=== PATIENT | female | born 1960 | race Caucasian/White ===

== ENCOUNTER 2022-11-02 14:42 | Outpatient (AMB) | payer OTHER, SELFPAY ==
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
[2022-11-02 14:49] VITALS: BP 120/62; PULSE 78; RESP 14; TEMP 37.2; O2SAT 99; BMI 31.9
== END 2022-11-02 15:58 | disposition home or self-care (01) ==
PROVIDERS: PCP Family Medicine; Visit Provider Family Medicine
DX: I10 Essential (primary) hypertension (principal); E11.65 Type 2 diabetes mellitus with hyperglycemia; J45.909 Unspecified asthma, uncomplicated; I25.10 Atherosclerotic heart disease of native coronary artery without angina pectoris; M25.511 Pain in right shoulder; E78.5 Hyperlipidemia, unspecified; R79.89 Other specified abnormal findings of blood chemistry
CPT/HCPCS: 99204

== ENCOUNTER 2023-02-15 08:48 | Outpatient (AMB) | payer OTHER, SELFPAY ==
[2023-02-15 08:52] VITALS: BP 124/64; PULSE 73; RESP 12; O2SAT 98; BMI 30.9
--- NOTE | 2023-02-15 08:52 | A.OFFPC_ITS ---
Vital Signs 02/15/23 08:52 Height 4 ft 10 in Weight 148 lb BMI 30.9 BP 124/64 Blood Pressure Location Lt brachial Position Sitting Respiration 12 Pulse 73 Pulse Source Pulse Oximeter Pulse Oximetry (%) 98 Oxygen Delivery Method Room Air Intake Visit Reasons: CPE with f/u labs and health maintenance Intake Note: Patient is here for her physical and to review her labs. Patient reports she had a pressure test with Dr. Randolph and is not aware of these results yet. Patient reports she had labs completed at [facility] labs. These labs are printed for providers review. Patient reports she needs help with obtaining diabetic supplies. Teller Required: No Accompanied by: Self / Same As Patient Allergies epinephrine Allergy (Severe, Verified 02/15/23 08:58) Anxiety general anestesia Allergy (Severe, Uncoded 02/15/23 08:58) hypothermia statin Allergy (Severe, Uncoded 02/15/23 08:58) Joint Pain Medication List - Last Reconciled 02/15/23 by Perry Huff MD albuterol sulfate 90 mcg/actuation 2 puffs inhalation Q6H PRN aspirin 81 mg PO DAILY calcium carbonate-vitamin D3 500 mg-10 mcg (400 unit) (Oyster Shell Calcium- Vitamin D3) 1 tab PO DAILY cholecalciferol (vitamin D3) 1,250 mcg PO .every other week clotrimazole-betamethasone 1-0.05 % 1 appl topical BID empagliflozin (Jardiance) 25 mg PO DAILY 90 days estradiol 1 mg PO DAILY ezetimibe 10 mg PO DAILY glyburide 5 mg PO BID 90 days levothyroxine 100 mcg PO DAILY 90 days lisinopril 5 mg PO DAILY metoprolol succinate ER 25 mg PO DAILY vitamin K2 100 mcg PO DAILY Tobacco use date assessed: 11/02/22 Dental Screening Dental Screen Date: 02/15/23 Did you have a dental visit in the last 12 months?: Yes Did you have a dental problem in the last 6 months where you did not have access to dental care?: No Was dental information given to patient?: Patient has dentist HPI CPE with f/u labs and health maintenance HPI Details 62 y/o female presents for a CPE with f/ u labs and health maintenance. Hx of CAD. Labs had been completed at [facility]. LDL 90. She is on ezetimibe 10mg daily. Pt reports she had been unable to tolerate artovastatin. She has not trialed pravastatin yet. Recent A1c 8.8%. She is on Jardiance 25mg daily, glyburide 5mg b.i.d. She had been on insulin in the past. She has not trialed Trulicity yet. She sees an eye doctor every year for her diabetes. [facility] Medical History History of pilonidal cyst Surgical History History of heart artery stent H/O tubal ligation H/O: hysterectomy Family History (Updated 02/15/23 @ 09:06 by Sumaya Farfan CMA) Mother Alcohol abuse Father Alcohol abuse Brother Alcohol abuse Sister No problems noted. Social History (Updated 02/15/23 @ 09:08 by Sumaya Farfan CMA) Household Members: None Both parents involved: No Caregiver staying overnight: No Housing: House Are you a primary career information specialist to a significant other at home: No Do you presently have visiting nurse or other home services: No 75 years or older and lives alone: No Alcohol intake: never Patient Tobacco Use Status: Former Tobacco user Cigarette Packs Per Day: 1 Years Smoked: 30 e-Cigarette/Vaping Use: Never Used service: Yes ([employer]) Current occupational status: employed Current occupation: [employer] Current occupational exposures/hazards: Yes Sexual orientation: Unable to collect Gender identity: Unable to collect Cognitive needs: No Hearing needs: Yes Vision needs: Yes Questionnaire PHQ-9 Over the last 2 weeks, how often have you been bothered by any of the following problems? 1. Little interest or pleasure in doing things: not at all 2. Feeling down, depressed, or hopeless: not at all 3. Trouble falling or staying asleep, or sleeping too much: not at all 4. Feeling tired or having little energy: not at all 5. Poor appetite or overeating: not at all 6. Feeling bad about yourself - or that you are a failure or have let yourself or your family down: not at all 7. Trouble concentrating on things, such as reading the newspaper or watching television: not at all 8. Moving or speaking so slowly that other people could have noticed. Or the opposite - being so fidgety or restless that you have been moving around a lot more than usual: not at all 9. Thoughts that you would be better off or of hurting yourself in some way: not at all Total score: 0 Depression Screening Interpretation: Negative Depression Screening Done: Yes 12786 - PHQ-9 Billing: Yes Source: Developed by Drs. Roque Kaur, Diana Ordaz, Kevin Velásquez and colleagues, with an educational rosendo from [employer]. Thrive Questionnaire Date Thrive assessed: 02/15/23 I am a: Patient What is your living situation today?: I have a steady place to live Within the past 12 months, did the food you bought not last and you didn't have the money to get more?: Never true Within the past 12 months, did you worry whether your food would run out before you got money to buy more?: Never true Do you have trouble paying for medicines?: No Do you have trouble getting transportation to medical appointments?: No Do you have trouble paying your heating and electricity bill?: No Do you have trouble with day-to-day activities such as bathing, preparing meals, shopping, managing finances, etc.?: No Are you currently unemployed and looking for a job?: No Are you interested in more education?: No Please select the resources that you would like help with: None Currently or been in a relationship where the following occur: no concerns reported AUDIT C Alcohol Use Questionnaire (AUDIT-C) 1. How often do you have a drink containing alcohol?: Never 3. How often do you have six or more drinks on one occasion?: Never Total Score: 0 HEIDY-7 AMB Questionnaire HEIDY-7 Date HEIDY - 7 assessed: 02/15/23 Feeling nervous, anxious, or on edge: 0 = Not at all Not being able to stop or control worryin = Not at all Worrying too much about different things: 0 = Not at all Trouble relaxin = Not at all Being so restless that it is hard to sit still: 0 = Not at all Becoming easily annoyed or irritable: 0 = Not at all Feeling afraid as if something awful might happen: 0 = Not at all Total HEIDY-7 score (0-4 normal; 5-9 mild; 10-14 moderate; 15-21 severe): 0 Source: Developed by Drs. Roque Kaur, Diana Ordza, Kevin Velásquez and colleagues, with an educational rosendo from [employer]. HEIDY-7 Assessment Billing HEIDY-7 Assessment Tool: HEIDY-7 Assessment 12288 Review of Systems Const Denies chills, Denies fatigue, Denies fever(s), Denies headache(s) and Denies weakness Eyes Denies change in vision ENT Denies dizziness, Denies headache(s), Denies hearing loss, Denies nasal congestion, Denies sinus pain, Denies sinus pressure and Denies sore throat Card Denies chest pain, Denies lightheadedness, Denies dyspnea and Denies other (palpitations) Resp Denies cough, Denies dyspnea and Denies wheezing GI Denies abdominal pain, Denies melena, Denies hematochezia, Denies change in bowel habits, Denies dyspepsia and Denies nausea Denies hematuria and Denies dysuria Musc Denies abnormal gait, Denies myalgias, Denies arthralgias, Denies numbness and Denies tingling Skin/Breast Denies rash, Denies unusual bruising and Denies wounds Neuro Denies abnormal gait, Denies dizziness, Denies headache(s), Denies memory loss, Denies numbness, Denies Sensory deficit (Neuro), Denies tingling and Denies weakness Psych Denies anxiety, Denies depression and Denies memory loss Endo Denies cold intolerance, Denies fatigue, Denies heat intolerance, Denies polydipsia and Denies polyuria Parish/Lymph Denies easy bleeding and Denies easy bruising Aller/Immun Denies wheezing Physical exam (Primary Care) Vital Signs: Last Vital Signs Pulse 73 02/15/23 08:52 Resp 12 02/15/23 08:52 BP 124/64 02/15/23 08:52 Pulse Ox 98 02/15/23 08:52 Oxygen Delivery Method Room Air 02/15/23 08:52 BMI result Body Mass Index 30.9 Tobacco/Smoking Status: Tobacco use Status Tobacco use date assessed 11/02/22 02/15/23 08:56 Patient Tobacco Use Status Former Tobacco user 02/15/23 09:08 e-Cigarette/Vaping Use Never Used 02/15/23 09:08 PHQ-9: PHQ-9 Score PHQ-9: Total score 0 02/15/23 09:41 Depression Screening Interpretation: Negative Thrive Assessment: Date of Thrive Assessment Date Thrive assessed 02/15/23 02/15/23 09:13 Currently or been in a relationship where the following occur: no concerns reported Const General: no acute distress, well developed, alert and awake Nutritional Appearance: well nourished Orientation/consciousness: patient oriented x3 HENMT Head: Yes normocephalic and Yes atraumatic Ears: hearing grossly normal bilaterally and TM's normal bilaterally General nose exam: Normal external nose present and Normal nares present Mouth: Normal oral and palatal mucosa present and moist mucous membranes Teeth and gingiva: dentition normal Throat: Yes posterior oropharynx normal Eyes General: appearance normal, both eyes and all related structures Pupils: Equal, round and reactive pupils present and Pupil accommodation reflex normal EOM: EOMs intact bilaterally Neck Neck: Yes normal visual inspection, Yes no lymphadenopathy and Yes trachea midline Thyroid: Thyroid normal Carotids: no bruits Lymphatic: no lymphadenopathy noted Chest Chest palpation & inspection: normal inspection of the chest Resp Effort & Inspection: normal respiratory effort Auscultation: clear to auscultation bilaterally Cardio Rate: regular rate Rhythm: regular rhythm Heart sounds: S1 normal heart sound present, S2 normal heart sound present, no gallops, no murmurs and no rubs Bruits: no abdominal aortic bruits and no carotid bruits GI Palpation (GI): No Abdominal aortic bruit present, Soft to palpation, nontender, No hepatosplenomegaly present and No Rebound tenderness present Auscultation: normal bowel sounds General: Yes no CVA tenderness Back/Spine/Pelvis Back: no CVA tenderness Cervical Spine: cervical ROM normal and No Cervical spine tenderness Thoracic/Lumbar Spine: thoraco-lumbar ROM normal, No pain with thoraco-lumbar ROM, No thoracic spinal tenderness and No lumbar spinal tenderness Skin Lesions: no lesions Rashes: no rashes Trauma: no lacerations or abrasions Wounds: no wounds Nails: normal Neuro General: patient oriented x3 Cranial nerves: Yes Equal, round and reactive pupils present Cognition (Neuro): normal cognition Gait exam (Neuro): Normal gait present Motor exam (neuro): 5/5 motor strength present throughout Sensory Exam: No Sensory deficit (Neuro) Deep tendon reflexes (DTR's): Right patellar reflex intensity grade: 2+ and Left patellar reflex intensity grade: 2+ Extrem General: Yes normal to inspection and No edema Psych Appearance: grossly normal Affect: normal affect Attitude: cooperative Thought process: Normal thought process present Assessment and Plan Assessment & Plan (1) Adult general medical exam: Code(s): Z00.00 - Encounter for general adult medical examination without abnormal findings Plan: 62-year-old?female?presents?for?complete?physical?exam (2) Diabetes: Code(s): E11.9 - Type 2 diabetes mellitus without complications Plan: A1c?8.8%.??Uncontrolled?diabetes.??Goal?is?less?than?7.0% Continue?Jardiance.??Will?start?Trulicity. Patient?is?concerned?about?low?blood?sugars;?She?can?hold?her ?glyburide?when?1st?starting?Trulicity?and?added?back?if?she?is?not?getting?low? blood?sugars. (3) Hyperlipidemia: Code(s): E78.5 - Hyperlipidemia, unspecified Plan: LDL?cholesterol?90.??Goal?is?less?than?70?for?patient?with?coronary?artery?disea se She?is?on?Zetia. Has?not?tolerated?other?statins?but?has?not?tried?pravastatin Will?give?her?a?low?dose?of?pravastatin?to?try?to?get?her?at?or?near?goal We?discussed?stopping?the?medication?if?she?notes?worsening?achiness. (4) Coronary artery disease: Code(s): I25.10 - Atherosclerotic heart disease of [place] coronary artery without angina pectoris Plan: Currently?stable Follow-up?with?Cardiology?at?[facility] Medications: New pravastatin 5 mg (1/2 x 10 mg) PO BEDTIME 30 days 15 tabs 2RF dulaglutide (Trulicity) 0.75 mg (0.5 mL) subcut QWEEK 28 days 2 mL 3RF Coding Level of Care Code Est Pt Level 3 (52563) Est Pt Prev Care 40-64y(22348) Diagnoses Adult general medical exam Z00.00 Diabetes E11.9 Hyperlipidemia E78.5 Coronary artery disease I25.10 Additional Codes HEIDY-7 Assessment Billing - HEIDY-7 Assessment Tool: HEIDY-7 Assessment 53656 ([id number])
== END 2023-02-15 10:15 | disposition home or self-care (01) ==
PROVIDERS: PCP Family Medicine; Visit Provider Family Medicine
DX: Z00.00 Encounter for general adult medical examination without abnormal findings (principal); E11.9 Type 2 diabetes mellitus without complications; E78.5 Hyperlipidemia, unspecified; I25.10 Atherosclerotic heart disease of native coronary artery without angina pectoris
CPT/HCPCS: 99213; 99396

== ENCOUNTER 2023-02-28 08:45 | Outpatient (AMB) | payer OTHER, SELFPAY ==
--- NOTE | 2023-02-28 09:15 | MHC.PC.OV ---
Vital Signs 02/28/23 09:17 Height 4 ft 10 in Weight 154 lb 2 oz BMI 32.2 BP 134/68 Blood Pressure Location Lt brachial Position Sitting Respiration 12 Pulse 70 Pulse Source Pulse Oximeter Pulse Oximetry (%) 99 Oxygen Delivery Method Room Air Intake Visit Reasons: arana, allergic reaction Intake Note: Patient is here for a hospital discharge follow up of an unknown allergic reaction. Patient reports she has been told to stop taking the Lisinopril and the Trulicity as they have intertwining side effects from what the patient is experiencing including facial swelling. Patient reports she has pink eye symptoms as well and wonders if this is coincidental. 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 Accompanied by: Self / Same As Patient Allergies epinephrine Allergy (Severe, Verified 02/28/23 09:36) Anxiety general anestesia Allergy (Severe, Uncoded 02/28/23 09:22) hypothermia statin Allergy (Severe, Uncoded 02/28/23 09:22) Joint Pain lisinopril Allergy (Mild, Uncoded 02/28/23 09:36) Angioedema Medication List - Last Reconciled 02/28/23 by Latoya Harris, [facility]- albuterol sulfate 90 mcg/actuation 2 puffs inhalation Q6H PRN aspirin 81 mg PO DAILY calcium carbonate-vitamin D3 500 mg-10 mcg (400 unit) (Oyster Shell Calcium-Vitamin D3) 1 tab PO DAILY cholecalciferol (vitamin D3) 1,250 mcg PO .every other week clotrimazole-betamethasone 1-0.05 % 1 appl topical BID dulaglutide (Trulicity) 0.75 mg (0.5 mL) subcut QWEEK 28 days empagliflozin (Jardiance) 25 mg PO DAILY 90 days estradiol 1 mg PO DAILY ezetimibe 10 mg PO DAILY glyburide 5 mg PO BID 90 days levothyroxine 100 mcg PO DAILY 90 days lisinopril 5 mg PO DAILY metoprolol succinate ER 25 mg PO DAILY pravastatin 5 mg (1/2 x 10 mg) PO BEDTIME 30 days vitamin K2 100 mcg PO DAILY Tobacco use date assessed: 02/28/23 HPI HPI Comments History of Present Illness Details Here today for HDF 02/26/23 Went to ED for angioedema after new start of Trulicity (02/25/23 at 7pm). her sx started that evening. She was also on ACEI D/C instructions were to d/c both meds and f/u Here today feeling did not trulicity or lisinopril cont w/ eye lid swelling. started w chills but w/o fever Using benadryl w/o relief Denies trouble breathing, swallowing, swelling of oral mucosa. blood sugar was 93 this AM [facility] Medical History History of pilonidal cyst Surgical History History of heart artery stent H/O tubal ligation H/O: hysterectomy Family History (Updated 02/15/23 @ 09:06 by Sumaya Farfan CMA) Mother Alcohol abuse Father Alcohol abuse Brother Alcohol abuse Sister No problems noted. Social History (Updated 02/15/23 @ 09:08 by Sumaya Farfan CMA) Household Members: None Both parents involved: No Caregiver staying overnight: No Housing: House Are you a primary healthcare financial analyst to a significant other at home: No Do you presently have visiting nurse or other home services: No 75 years or older and lives alone: No Alcohol intake: never Patient Tobacco Use Status: Former Tobacco user Cigarette Packs Per Day: 1 Years Smoked: 30 e-Cigarette/Vaping Use: Never Used service: Yes ([employer]) Current occupational status: employed Current occupation: [employer] Current occupational exposures/hazards: Yes Sexual orientation: Unable to collect Gender identity: Unable to collect Cognitive needs: No Hearing needs: Yes Vision needs: Yes Questionnaire Thrive Questionnaire Date Thrive assessed: 02/15/23 HEIDY-7 AMB Questionnaire HEIDY-7 Date HEIDY - 7 assessed: 02/15/23 Source: Developed by Drs. Roque Kaur, Diana Ordaz, Kevin Velásquez and colleagues, with an educational rosendo from [employer]. Review of Systems Const All systems reviewed & are unremarkable except as noted in HPI and below Physical exam (Primary Care) Vital Signs: Last Vital Signs Pulse 70 02/28/23 09:17 Resp 12 02/28/23 09:17 BP 134/68 02/28/23 09:17 Pulse Ox 99 02/28/23 09:17 Oxygen Delivery Method Room Air 02/28/23 09:17 BMI result Body Mass Index 32.2 Tobacco/Smoking Status: Tobacco use Status Tobacco use date assessed 02/28/23 02/28/23 09:22 Patient Tobacco Use Status Former Tobacco user 02/28/23 09:15 e-Cigarette/Vaping Use Never Used 02/28/23 09:15 Thrive Assessment: Date of Thrive Assessment Date Thrive assessed 02/15/23 02/28/23 09:15 Const Other: awake alert NAD edema of upper lids bilat, PERRLA, EOMI pharynx wnl, managing secretions LS CTAB RRR Assessment and Plan Assessment & Plan (1) Hospital discharge follow-up: Code(s): Z09 - Encounter for follow-up examination after completed treatment for conditions other than malignant neoplasm (2) Angioedema: Code(s): T78.3XXA - Angioneurotic edema, initial encounter Qualifiers: Encounter type: subsequent encounter Qualified Code(s): T78.3XXD - Angioneurotic edema, subsequent encounter Plan Total time spent caring for the patient today was 60 minutes. This includes time spent before the visit reviewing the chart, time spent during the visit, and time spent after the visit on documentation Medications: New famotidine (Pepcid) 40 mg PO BEDTIME 14 tabs 0RF cetirizine (Zyrtec) 10 mg PO DAILY 30 days 30 tabs 0RF Patient Instructions: STOP lisinopril. Add to allergy at the pharmacy. Call Dr Randolph for alternative to Lisinopril Do not inject trulicity until after your visit here on Tuesday. Do not restart glyburide or jardiance at this time - we will discuss further at next visit if you think you need benadryl, take only at bedtime . Monitor BP and blood glucose at home, bring log with you. Coding Level of Care Code Est Pt Level 5 (89828) Diagnoses Hospital discharge follow-up Z09 Angioedema, subsequent encounter T78.3XXD Encounter type: subsequent encounter
[2023-02-28 09:17] VITALS: BP 134/68; PULSE 70; RESP 12; O2SAT 99; BMI 32.2
== END 2023-02-28 09:54 | disposition home or self-care (01) ==
PROVIDERS: PCP Family Medicine; Visit Provider Nurse Practitioner Family
DX: T78.3XXA Angioneurotic edema, initial encounter (principal); Z09 Encounter for follow-up examination after completed treatment for conditions other than malignant neoplasm
CPT/HCPCS: 99215

== ENCOUNTER 2023-03-04 09:00 | Outpatient (AMB) | payer OTHER, SELFPAY ==
[2023-03-04 09:07] VITALS: BP 122/72; PULSE 75; O2SAT 100; BMI 31.6
--- NOTE | 2023-03-04 09:07 | MHC.PC.OV ---
Vital Signs 03/04/23 09:07 Height 4 ft 10 in Weight 151 lb 2 oz BMI 31.6 BP 122/72 Blood Pressure Location Lt brachial Position Sitting Pulse 75 Pulse Source Pulse Oximeter Pulse Oximetry (%) 100 Oxygen Delivery Method Room Air Intake Visit Reasons: allergic reaction follow up Intake Note: Patient is here for follow up on allergic reaction, patient is not getting any relief, sinus pressure, and histimines, and numbness feeling on left side frome eye to nose, and drooling on the right side. Allergies epinephrine Allergy (Severe, Verified 03/04/23 10:02) Anxiety general anestesia Allergy (Severe, Uncoded 03/04/23 09:10) hypothermia statin Allergy (Severe, Uncoded 03/04/23 09:10) Joint Pain lisinopril Allergy (Mild, Uncoded 03/04/23 09:10) Angioedema Medication List - Last Reconciled 03/04/23 by Latoya Harris, CAVING GUIDE- albuterol sulfate 90 mcg/actuation 2 puffs inhalation Q6H PRN aspirin 81 mg PO DAILY calcium carbonate-vitamin D3 500 mg-10 mcg (400 unit) (Oyster Shell Calcium-Vitamin D3) 1 tab PO DAILY cetirizine (Zyrtec) 10 mg PO DAILY 30 days cholecalciferol (vitamin D3) 1,250 mcg PO .every other week clotrimazole-betamethasone 1-0.05 % 1 appl topical BID dulaglutide (Trulicity) 0.75 mg (0.5 mL) subcut QWEEK 28 days empagliflozin (Jardiance) 25 mg PO DAILY 90 days estradiol 1 mg PO DAILY ezetimibe 10 mg PO DAILY famotidine (Pepcid) 40 mg PO BEDTIME levothyroxine 100 mcg PO DAILY 90 days metoprolol succinate ER 25 mg PO DAILY pravastatin 5 mg (1/2 x 10 mg) PO BEDTIME 30 days vitamin K2 100 mcg PO DAILY Tobacco use date assessed: 03/04/23 Dental Screening Dental Screen Date: 03/04/23 HPI HPI Comments History of Present Illness Details Here today to f/u angioedema thought to be caused by ACEI Since last visit she has remained her lisinopril. She did call Cardiology for alternative however she has not heard back. Despite being off the Wes her blood pressure is within normal limits. She has not received another dose of Trulicity since our last visit. She is due for her 2nd dose today. Her blood sugar log was reviewed with her today, readings are less than 130 mg/dL. Her blood sugar this morning was 126 mg/dL. She remains off the glyburide and is taking Jardiance 10 mg in the morning. In regards to the angioedema symptoms she is not sure if this is getting better or if she has something else going on. She reports a history of sinus infections usually happen a few times a year. She describes sinus infections being noticed on imaging but on physical exam no impressive findings. Today she reports that she is having sinus congestion, pressure, burning in nares. This started over the last few days. She did continue to have some tearing in her eyes and she did go to the eye doctor on Tuesday she reports a full exam was done and told everything was within normal limits. Her breathing remains normal. The edema over her eyes is better. However remains. Continues to take Benadryl at night. Did not try the Zyrtec or the Pepcid as she did not really understand why she should be taking that. She wants to continue the Trulicity and has no interest in stopping this. [facility] Medical History History of pilonidal cyst Surgical History History of heart artery stent H/O tubal ligation H/O: hysterectomy Family History Mother Alcohol abuse Father Alcohol abuse Brother Alcohol abuse Sister No problems noted. Social History Household Members: None Both parents involved: No Caregiver staying overnight: No Housing: House Are you a primary caregiver services home to a significant other at home: No Do you presently have visiting nurse or other home services: No 75 years or older and lives alone: No Alcohol intake: never Patient Tobacco Use Status: Former Tobacco user Cigarette Packs Per Day: 1 Years Smoked: 30 e-Cigarette/Vaping Use: Never Used service: Yes ([employer]) Current occupational status: employed Current occupation: [employer] Current occupational exposures/hazards: Yes Sexual orientation: Unable to collect Gender identity: Unable to collect Cognitive needs: No Hearing needs: Yes Vision needs: Yes Questionnaire Thrive Questionnaire Date Thrive assessed: 02/15/23 HEIDY-7 AMB Questionnaire HEIDY-7 Date HEIDY - 7 assessed: 02/15/23 Source: Developed by Drs. Roque Kaur, Diana Ordaz, Kevin Velásquez and colleagues, with an educational rosendo from [employer]. Review of Systems Const All systems reviewed & are unremarkable except as noted in HPI and below Physical exam (Primary Care) Vital Signs: Last Vital Signs Pulse 75 03/04/23 09:07 BP 122/72 03/04/23 09:07 Pulse Ox 100 03/04/23 09:07 Oxygen Delivery Method Room Air 03/04/23 09:07 BMI result Body Mass Index 31.6 Tobacco/Smoking Status: Tobacco use Status Tobacco use date assessed 03/04/23 03/04/23 09:11 Patient Tobacco Use Status Former Tobacco user 03/04/23 09:11 e-Cigarette/Vaping Use Never Used 03/04/23 09:11 Thrive Assessment: Date of Thrive Assessment Date Thrive assessed 02/15/23 03/04/23 09:11 Const Other: awake alert NAD TM intact and clear nares and turbinates normal, no sinus tenderness w/palpation improving edema of upper lids bilat, PERRLA, EOMI pharynx wnl, managing secretions LS CTAB RRR Assessment and Plan Assessment & Plan (1) Angioedema: Code(s): T78.3XXA - Angioneurotic edema, initial encounter Qualifiers: Encounter type: subsequent encounter Qualified Code(s): T78.3XXD - Angioneurotic edema, subsequent encounter Plan: Total time spent caring for the patient today was 60 minutes. This includes time spent before the visit reviewing the chart, time spent during the visit, and time spent after the visit on documentation Discussed with her the risks of restarting Trulicity. Despite the risks she wishes to restart this medication and will take her 1st dose today. She is aware that if angioedema or the like occurs that she should call 911. In regards to the WES inhibitor, I do believe that she should remain off of this. At this time her blood pressure is normal. She would benefit from an Arb. She has not heard back from cardiology on a recommendation yet. I did advise her that because we are treating her with antibiotic for presumed sinus infection that she should not start any other new medications as it will be hard to determine a cause of any future symptoms. She understands this. She will take antibiotics as directed. She can continue to take her Jardiance as prescribed. I will see her back in 1 week to re-evaluate the angioedema, her tolerance of the Trulicity, and re-evaluate her blood pressure and add an Arb p.r.n.. (2) Diabetes: Code(s): E11.9 - Type 2 diabetes mellitus without complications Qualifiers: Diabetes mellitus type: type 2 Diabetes mellitus residential insulin use: without termite exterminator helper use (3) Hypertension: Code(s): I10 - Essential (primary) hypertension Qualifiers: Hypertension type: primary hypertension Qualified Code(s): I10 - Essential (primary) hypertension (4) Sinusitis, acute: Code(s): J01.90 - Acute sinusitis, unspecified Qualifiers: Sinusitis location: pansinusitis Recurrence: non-recurrent Qualified Code(s): J01.40 - Acute pansinusitis, unspecified Medications: New amoxicillin-pot clavulanate 875-125 mg 1 tab PO BID 7 days 14 tabs 0RF Patient Instructions: Restart Trulicity today If Cards started new htn medication - do not start YET. Take AB as directed ok to use benadryl and pepcid If signs of allergic reaction return, seek ED level care Coding Level of Care Code Est Pt Level 5 (63179) Diagnoses Angioedema, subsequent encounter T78.3XXD Encounter type: subsequent encounter Diabetes E11.9 Diabetes mellitus type: type 2 Diabetes mellitus residential insulin use: without residential use Primary hypertension I10 Hypertension type: primary hypertension Acute non-recurrent pansinusitis J01.40 Sinusitis location: pansinusitis Recurrence: non-recurrent
== END 2023-03-04 10:09 | disposition home or self-care (01) ==
PROVIDERS: PCP Family Medicine; Visit Provider Nurse Practitioner Family
DX: T78.3XXD Angioneurotic edema, subsequent encounter (principal); E11.9 Type 2 diabetes mellitus without complications; I10 Essential (primary) hypertension; J01.40 Acute pansinusitis, unspecified
CPT/HCPCS: 99215

== ENCOUNTER 2023-03-11 11:46 | Outpatient (AMB) | payer OTHER, SELFPAY ==
--- NOTE | 2023-03-11 11:52 | A.OFFPC_ITS ---
Vital Signs 03/11/23 11:54 Height 4 ft 10 in Weight 150 lb 6 oz BMI 31.4 BP 110/66 Blood Pressure Location Rt brachial Position Sitting Pulse 77 Pulse Source Pulse Oximeter Pulse Oximetry (%) 98 Oxygen Delivery Method Room Air Intake Visit Reasons: 1 Week follow up Intake Note: Patient is here to follow up on medication review and sinus infection. Lather Apprentice Required: No Unishear Operator: Not Required per policy Accompanied by: Self / Same As Patient Allergies epinephrine Allergy (Severe, Verified 03/11/23 11:53) Anxiety general anestesia Allergy (Severe, Uncoded 03/11/23 11:53) hypothermia statin Allergy (Severe, Uncoded 03/11/23 11:53) Joint Pain lisinopril Allergy (Mild, Uncoded 03/11/23 11:53) Angioedema Medication List - Last Reconciled 03/11/23 by Latoya Harris, OPHTHALMIC MEDICAL TECHNOLOGIST- albuterol sulfate 90 mcg/actuation 2 puffs inhalation Q6H PRN aspirin 81 mg PO DAILY calcium carbonate-vitamin D3 500 mg-10 mcg (400 unit) (Oyster Shell Calcium- Vitamin D3) 1 tab PO DAILY cholecalciferol (vitamin D3) 1,250 mcg PO .every other week clotrimazole-betamethasone 1-0.05 % 1 appl topical BID dulaglutide (Trulicity) 0.75 mg (0.5 mL) subcut QWEEK 28 days empagliflozin (Jardiance) 25 mg PO DAILY 90 days estradiol 1 mg PO DAILY ezetimibe 10 mg PO DAILY levothyroxine 100 mcg PO DAILY 90 days metoprolol succinate ER 25 mg PO DAILY pravastatin 5 mg (1/2 x 10 mg) PO BEDTIME 30 days vitamin K2 100 mcg PO DAILY Tobacco use date assessed: 03/11/23 Dental Screening Dental Screen Date: 03/11/23 Did you have a dental visit in the last 12 months?: Yes Did you have a dental problem in the last 6 months where you did not have access to dental care?: No Was dental information given to patient?: Patient has dentist HPI HPI Comments History of Present Illness Details Here today to follow-up on angioedema, diabetes, hypertension, acute pansinusitis. At last visit she was prescribed Augmentin for presumed sinusitis. Reports that she took this as directed in his feeling 100% better in regards to her previous symptoms associated with sinusitis. In regards to the angioedema all of the symptoms are also resolved. She has not taking any medications at this time in regards to the angioedema. She remains off of the lisinopril which was the likely causative factor for her angioedema. She did restart her Trulicity last week and took it without any ill affects. She did bring in her blood sugar log for me and her blood sugars are stable less than 150 that includes fasting and before meals. In addition to the Trulicity she is taking Jardiance 10 mg. She remains off of all other diabetic agents. In regards to her hypertension she is not on an Acei or an Arb, she is only on the metoprolol, blood pressure today is within normal limits. She did not check at home so I do not have a log to compare to. She does report feeling like her glucometer is not accurate. States she bought 1 [id number] on her own. She has never claimed to and through the insurance company and wonders if this is something that she can do. Feels that she has highs and lows throughout the day and the night. 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 States that she sometimes gets worried and treats herself with glucose tabs just to make sure that her blood sugar does not go low. [facility] Medical History (Reviewed 03/04/23 @ 09:12 by Saranya Vela [facility]) History of pilonidal cyst Surgical History History of heart artery stent H/O tubal ligation H/O: hysterectomy Family History Mother Alcohol abuse Father Alcohol abuse Brother Alcohol abuse Sister No problems noted. Social History Household Members: None Both parents involved: No Caregiver staying overnight: No Housing: House Are you a primary neonatal intensive care unit nurse to a significant other at home: No Do you presently have visiting nurse or other home services: No 75 years or older and lives alone: No Alcohol intake: never Patient Tobacco Use Status: Former Tobacco user Cigarette Packs Per Day: 1 Years Smoked: 30 Packs Per Year: 30 e-Cigarette/Vaping Use: Never Used Second Hand Smoke Exposure: Yes service: Yes ([employer]) Current occupational status: employed Current occupation: [employer] Current occupational exposures/hazards: Yes Sexual orientation: Unable to collect Gender identity: Unable to collect Cognitive needs: No Hearing needs: Yes Vision needs: Yes (glasses) Questionnaire Thrive Questionnaire Date Thrive assessed: 02/15/23 HEIDY-7 AMB Questionnaire HEIDY-7 Date HEIDY - 7 assessed: 02/15/23 Source: Developed by Drs. Roque Kaur, Diana Ordaz, Keivn young nd colleagues, with an educational rosendo from [employer]. Review of Systems Const All systems reviewed & are unremarkable except as noted in HPI and below Physical exam (Primary Care) Vital Signs: Last Vital Signs Pulse 77 03/11/23 11:54 BP 110/66 03/11/23 11:54 Pulse Ox 98 03/11/23 11:54 Oxygen Delivery Method Room Air 03/11/23 11:54 BMI result Body Mass Index 31.4 Tobacco/Smoking Status: Tobacco use Status Tobacco use date assessed 03/11/23 03/11/23 12:01 Patient Tobacco Use Status Former Tobacco user 03/11/23 12:01 e-Cigarette/Vaping Use Never Used 03/11/23 12:01 Thrive Assessment: Date of Thrive Assessment Date Thrive assessed 02/15/23 03/11/23 12:01 Const Other: awake alert NAD resolved edema of upper lids bilat, PERRLA, EOMI managing secretions Assessment and Plan Assessment & Plan (1) Angioedema: Code(s): T78.3XXA - Angioneurotic edema, initial encounter Qualifiers: Encounter type: subsequent encounter Qualified Code(s): T78.3XXD - Angioneurotic edema, subsequent encounter Plan: Due to BHAVANI inhibitor. This has resolved. She is aware that she should remain off of BHAVANI inhibitors and alert her healthcare team that she is allergic (2) Uncontrolled diabetes mellitus with hyperglycemia: Comment: I have sent in a new order for freestyle CGM as I do feel like she would benefit from this given her hypoglycemia unawareness as well as swings in her blood sugars that she is feeling overnight. I was unable to find a glucometer that is covered by insurance. I have left a message with the nurse navigation team to help her set up and use the CGM as well as look for a glucometer that may be covered by her insurance. In the meantime she can continue to use her home monitor and continue to record her blood sugars. In regards to medication management she is doing quite well on the Trulicity so she should continue that the current dose. Her blood sugars are well controlled using the Jardiance 10 mg. Therefore I have discontinued the 25 mg of Jardiance and sent in a new prescription for Jardiance 10 mg. Code(s): E11.65 - Type 2 diabetes mellitus with hyperglycemia Qualifiers: Diabetes mellitus type: type 2 Qualified Code(s): E11.65 - Type 2 diabetes mellitus with hyperglycemia (3) Hypertension: Comment: controlled off ACEI. Soft, plan not to add ARB at this time. On Jardiance Code(s): I10 - Essential (primary) hypertension Qualifiers: Hypertension type: primary hypertension Qualified Code(s): I10 - Essential (primary) hypertension Plan: Advised for her to notify us for systolic blood pressure is greater than 140 Plan This note is constructed using voice recognition software. While every effort has been made to ensure accuracy in draughtsman, still errors may have been included Sometimes, these errors may affect the content or meaning of the given sentence . Total time spent caring for the patient today was 70 minutes. This includes time spent before the visit reviewing the chart, time spent during the visit, and time spent after the visit on documentation Orders: Referrals Nurse Navigator Referral E11.65 - Type 2 diabetes mellitus with hyperglycemia Medications: New empagliflozin (Jardiance) 10 mg PO DAILY 90 days 90 tabs 0RF flash glucose scanning reader (FreeStyle Tereza 14 Day [place]) As directed 1 ea 1RF E11.65 - Type 2 diabetes mellitus with hyperglycemia flash glucose sensor (FreeStyle Tereza 14 Day Sensor kit) As directed 6 ea 3RF E11.65 - Type 2 diabetes mellitus with hyperglycemia Discontinued empagliflozin (Jardiance) Discontinued Reason: Doctor's Order 25 mg PO DAILY 90 days 90 tabs 2RF Coding Level of Care Code Est Pt Level 5 (95832) Diagnoses Angioedema, subsequent encounter T78.3XXD Encounter type: subsequent encounter Uncontrolled type 2 diabetes mellitus with hyperglycemia E11.65 Diabetes mellitus type: type 2 Primary hypertension I10 Hypertension type: primary hypertension
[2023-03-11 11:54] VITALS: BP 110/66; PULSE 77; O2SAT 98; BMI 31.4
== END 2023-03-11 14:02 | disposition home or self-care (01) ==
PROVIDERS: PCP Family Medicine; Visit Provider Nurse Practitioner Family
DX: E11.65 Type 2 diabetes mellitus with hyperglycemia (principal); T78.3XXD Angioneurotic edema, subsequent encounter; I10 Essential (primary) hypertension
CPT/HCPCS: 99215; 99417

== ENCOUNTER 2023-07-26 10:29 | Outpatient (AMB) | payer OTHER, SELFPAY ==
--- NOTE | 2023-07-26 10:35 | MHC.PC.OV ---
Vital Signs 07/26/23 10:38 Height 4 ft 10 in Weight 131 lb 8 oz BMI 27.5 BP 136/74 Blood Pressure Location Lt brachial Position Sitting Pulse 68 Pulse Source Pulse Oximeter Pulse Oximetry (%) 98 Oxygen Delivery Method Room Air Intake Visit Reasons: 4 months Intake Note: Patient is here for follow up on her diabetes. Allergies epinephrine Allergy (Severe, Verified 07/26/23 10:40) Anxiety general anestesia Allergy (Severe, Uncoded 07/26/23 10:40) hypothermia statin Allergy (Severe, Uncoded 07/26/23 10:40) Joint Pain lisinopril Allergy (Mild, Uncoded 07/26/23 10:40) Angioedema Medication List - Last Reconciled 07/26/23 by Perry Huff MD albuterol sulfate 90 mcg/actuation 2 puffs inhalation Q6H PRN aspirin 81 mg PO DAILY blood sugar diagnostic (FreeStyle Lite Strips) As directed, check glucose twice per day blood-glucose meter As directed calcium carbonate-vitamin D3 500 mg-10 mcg (400 unit) (Oyster Shell Calcium-Vitamin D3) 1 tab PO DAILY cholecalciferol (vitamin D3) 1,250 mcg PO .every other week clotrimazole-betamethasone 1-0.05 % 1 appl topical BID empagliflozin (Jardiance) 25 mg PO DAILY estradiol 1 mg PO DAILY ezetimibe 10 mg PO DAILY flash glucose scanning reader (FreeStyle Tereza 2 [place]) As directed flash glucose sensor (FreeStyle Tereza 2 Sensor kit) As directed lancets (FreeStyle Lancets) As directed, check glucose twice per day levothyroxine 100 mcg PO DAILY 90 days metoprolol succinate ER 25 mg PO DAILY vitamin K2 100 mcg PO DAILY Tobacco use date assessed: 07/26/23 Dental Screening Dental Screen Date: 03/11/23 HPI 4 months HPI Details 62 y/o female presents to f/u diabetes, HLD with coronary artery disease. Had added Trulicity and added pravastatin. A1c today 07/26/23 is 6.9%. No recent labs to review for her lipids. She has an appt. with her prison keeper in December per pt. Blood pressure today 136/74. [facility] Medical History History of pilonidal cyst Surgical History History of heart artery stent H/O tubal ligation H/O: hysterectomy Family History Mother Alcohol abuse Father Alcohol abuse Brother Alcohol abuse Sister No problems noted. Social History Household Members: None Both parents involved: No Caregiver staying overnight: No Housing: House Are you a primary lead caregiver to a significant other at home: No Do you presently have visiting nurse or other home services: No 75 years or older and lives alone: No Alcohol intake: never Patient Tobacco Use Status: Former Tobacco user Cigarette Packs Per Day: 1 Years Smoked: 30 e-Cigarette/Vaping Use: Never Used Second Hand Smoke Exposure: Yes service: Yes ([employer]) Current occupational status: employed Current occupation: [employer] Current occupational exposures/hazards: Yes Sexual orientation: Unable to collect Gender identity: Unable to collect Cognitive needs: No Hearing needs: Yes Vision needs: Yes (glasses) Questionnaire Thrive Questionnaire Date Thrive assessed: 02/15/23 HEIDY-7 AMB Questionnaire HEIDY-7 Date HEIDY - 7 assessed: 02/15/23 Source: Developed by Drs. Roque Kaur, Diana Ordaz, Kevin Velásquez and colleagues, with an educational rosendo from [employer]. Review of Systems Const Denies chills, Denies fatigue, Denies fever(s), Denies headache(s) and Denies weakness ENT Denies dizziness and Denies headache(s) Card Denies dyspnea Resp Denies cough, Denies dyspnea, Denies wheezing and Denies other (shortness of breath) Musc Denies numbness and Denies tingling Neuro Denies dizziness, Denies headache(s), Denies numbness, Denies tingling and Denies weakness Psych Denies anxiety and Denies depression Endo Denies fatigue Aller/Immun Denies wheezing Physical exam (Primary Care) Vital Signs: Last Vital Signs Pulse 68 07/26/23 10:38 BP 136/74 07/26/23 10:38 Pulse Ox 98 07/26/23 10:38 Oxygen Delivery Method Room Air 07/26/23 10:38 BMI result Body Mass Index 27.5 Tobacco/Smoking Status: Tobacco use Status Tobacco use date assessed 07/26/23 07/26/23 10:41 Patient Tobacco Use Status Former Tobacco user 07/26/23 10:36 e-Cigarette/Vaping Use Never Used 07/26/23 10:36 Thrive Assessment: Date of Thrive Assessment Date Thrive assessed 02/15/23 07/26/23 10:36 Const General: well developed; No acute distress Nutritional Appearance: well nourished Orientation/consciousness: patient oriented x3 HENMT Head: Yes normocephalic and Yes atraumatic Eyes General: appearance normal, both eyes and all related structures Pupils: Equal, round and reactive pupils present EOM: EOMs intact bilaterally Resp Effort & Inspection: normal respiratory effort Auscultation: clear to auscultation bilaterally Cardio Rate: regular rate Rhythm: regular rhythm Heart sounds: S1 normal heart sound present, S2 normal heart sound present, no gallops, no murmurs and no rubs Neuro General: patient oriented x3 and gait normal Cranial nerves: Yes Equal, round and reactive pupils present Psych Affect: normal affect Assessment and Plan Assessment & Plan (1) Diabetes: Code(s): E11.9 - Type 2 diabetes mellitus without complications Qualifiers: Diabetes mellitus residential insulin use: without 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 Hopefully?with?the?weight?loss?and?Zetia?as?she?is?at?goal?of?LDL?less?than?70 If?not,?I?recommended?she?discuss?Repatha?with?her?prison keeper's?or?she?can?discuss?this?with?me (3) Coronary artery disease: Code(s): I25.10 - Atherosclerotic heart disease of [place] coronary artery without angina pectoris Plan: Stable Follow-up?with?Cardiology?as?recommended (4) Hypertension: Comment: controlled off ACEI. Soft, plan not to add ARB at this time. On Jardiance Code(s): I10 - Essential (primary) hypertension Qualifiers: Hypertension type: primary hypertension Qualified Code(s): I10 - Essential (primary) hypertension Plan: Blood?pressure?shows?fair?control.??Goal?is?less?than?130/80?for?patient?with?CAD She?was?well?controlled?at?last?visit?but?notes?that?she?is?rather?stressed?and?got?poor?sleep?last?night Continue?metoprolol?as?prescribed No?medication?changes?today (5) Hypothyroidism: Code(s): E03.9 - Hypothyroidism, unspecified Plan: She?is?on?levothyroxine Checking?thyroid?hormone?levels?and?we?can?discuss?at?next?visit Orders: Orders Thyroid Stimulating Hormone Today E03.9 - Hypothyroidism, unspecified Microalbumin, Random (w Creat) Today I10 - Essential (primary) hypertension Free T4 (Free Thyroxine) Today E03.9 - Hypothyroidism, unspecified Triiodothyronine T3 Total Today E03.9 - Hypothyroidism, unspecified Basic Metabolic Panel Today I10 - Essential (primary) hypertension, Z00.00 - Encounter for general adult medical examination without abnormal findings Coding Level of Care Code Est Pt Level 3 (40203) Diagnoses Diabetes E11.9 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
[2023-07-26 10:38] VITALS: BP 136/74; PULSE 68; O2SAT 98; BMI 27.5
== END 2023-07-26 11:26 | disposition home or self-care (01) ==
PROVIDERS: PCP Family Medicine; Visit Provider Family Medicine
DX: E11.69 Type 2 diabetes mellitus with other specified complication (principal); E78.5 Hyperlipidemia, unspecified; I25.10 Atherosclerotic heart disease of native coronary artery without angina pectoris; I10 Essential (primary) hypertension; E03.9 Hypothyroidism, unspecified
CPT/HCPCS: 83036; 99213

== ENCOUNTER 2023-12-28 13:52 | Outpatient (AMB) | payer OTHER, SELFPAY ==
--- NOTE | 2023-12-28 14:00 | A.OFFPC_ITS ---
Vital Signs 12/28/23 14:10 12/28/23 14:37 Height 4 ft 10 in Weight 142 lb 4 oz BMI 29.7 BP 130/61 110/74 Blood Pressure Location Rt brachial Rt brachial Position Sitting Sitting Respiration 16 Pulse 71 Pulse Source Pulse Oximeter Temp 97.5 F Temp Source Temporal Artery Scan Pulse Oximetry (%) 97 Oxygen Delivery Method Room Air Intake Visit Reasons: f/u clover't for DM, HTN and Hyperlipidemia. Intake Note: patient here for follow up on DM, HTN, Hyperlipidemia Ball Worker Required: No Is last menstrual period known: No Post menopausal: No Patient : No Allergies epinephrine Allergy (Severe, Verified 12/28/23 14:23) Anxiety general anestesia Allergy (Severe, Uncoded 12/28/23 14:23) hypothermia statin Allergy (Severe, Uncoded 12/28/23 14:23) Joint Pain lisinopril Allergy (Mild, Uncoded 12/28/23 14:23) Angioedema Medication List - Last Reconciled 12/28/23 by Usman Medel CNP albuterol sulfate 90 mcg/actuation 2 puffs inhalation Q6H PRN aspirin 81 mg PO DAILY blood sugar diagnostic (FreeStyle Lite Strips) As directed, check glucose twice per day blood-glucose meter As directed calcium carbonate-vitamin D3 500 mg-10 mcg (400 unit) (Oyster Shell Calcium- Vitamin D3) 1 tab PO DAILY cholecalciferol (vitamin D3) 1,250 mcg PO .every other week clotrimazole-betamethasone 1-0.05 % 1 appl topical BID dulaglutide (Trulicity) 0.75 mg (0.5 mL) subcut QWEEK 28 days estradiol 1 mg PO DAILY ezetimibe 10 mg PO DAILY flash glucose scanning reader (FreeStyle Tereza 2 [place]) As directed flash glucose sensor (FreeStyle Tereza 2 Sensor kit) As directed lancets (FreeStyle Lancets) As directed, check glucose twice per day levothyroxine 100 mcg PO DAILY 90 days metoprolol succinate ER 25 mg PO DAILY vitamin K2 100 mcg PO DAILY Tobacco use date assessed: 12/28/23 Dental Screening Dental Screen Date: 12/28/23 Did you have a dental visit in the last 12 months?: Yes Did you have a dental problem in the last 6 months where you did not have access to dental care?: No Was dental information given to patient?: Patient has dentist HPI HPI Comments History of Present Illness Details The patient is a 63-year-old female presenting with ongoing issues related to hypertension, type 2 diabetes mellitus, and hyperlipidemia. The patient has been managing diabetes with Trulicity 0.75 mg weekly, which she started one week ago. Previously, she was on Jardiance and glyburide, which were discontinued when Trulicity was initiated, but her blood sugars have since been high, with a recent fasting level of 155 mg/dL. Her most recent hemoglobin A1c is 8.4%, increased from 6.9% in July, suggesting a worsening of glycemic control. Additionally, she is currently taking Zetimibe for hyperlipidemia; her cholesterol level during the last cardiology visit was 177 mg/dL. The patient's hypertension is managed with metoprolol 25 mg daily, and her recent blood pressure reading was 110/74 mmHg. She has a history of coronary artery disease with a stent placed, underlining the importance of strict cardiovascular risk management. Concerns about low T3 levels were also discussed, noted at 64 ng/dL with a normal T4 and TSH, indicating possible thyroid abnormalities. [facility] Medical History History of pilonidal cyst Surgical History History of heart artery stent H/O tubal ligation H/O: hysterectomy Family History Mother Alcohol abuse Father Alcohol abuse Brother Alcohol abuse Sister No problems noted. Social History Household Members: None Housing: House Are you a primary critical care paramedic to a significant other at home: No Do you presently have visiting nurse or other home services: No Alcohol intake: never Patient Tobacco Use Status: Former Tobacco user Cigarette Packs Per Day: 1 Years Smoked: 30 e-Cigarette/Vaping Use: Never Used Second Hand Smoke Exposure: Yes service: Yes ([employer]) Current occupational status: employed Current occupation: [employer] Current occupational exposures/hazards: Yes Sexual orientation: Unable to collect Gender identity: Unable to collect Cognitive needs: No Hearing needs: Yes Vision needs: Yes (glasses) Questionnaire PHQ-9 Over the last 2 weeks, how often have you been bothered by any of the following problems? 1. Little interest or pleasure in doing things: not at all 2. Feeling down, depressed, or hopeless: not at all 3. Trouble falling or staying asleep, or sleeping too much: not at all 4. Feeling tired or having little energy: not at all 5. Poor appetite or overeating: not at all 6. Feeling bad about yourself - or that you are a failure or have let yourself or your family down: not at all 7. Trouble concentrating on things, such as reading the newspaper or watching television: not at all 8. Moving or speaking so slowly that other people could have noticed. Or the opposite - being so fidgety or restless that you have been moving around a lot more than usual: not at all 9. Thoughts that you would be better off or of hurting yourself in some way: not at all Total score: 0 Depression Screening Interpretation: Negative Depression Screening Done: Yes 62542 - PHQ-9 Billing: Yes Source: Developed by Drs. Roque Kaur, Diana Ordaz, Kevin Velásquez and colleagues, with an educational rosendo from [employer]. Thrive Questionnaire Date Thrive assessed: 12/28/23 I am a: Patient What is your living situation today?: I have a steady place to live Within the past 12 months, did the food you bought not last and you didn't have the money to get more?: Never true Within the past 12 months, did you worry whether your food would run out before you got money to buy more?: Never true Do you have trouble paying for medicines?: No Do you have trouble getting transportation to medical appointments?: No Do you have trouble paying your heating and electricity bill?: No Do you have trouble taking care of your child, family member or friend?: No Do you have trouble with day-to-day activities such as bathing, preparing meals, shopping, managing finances, etc.?: No Are you currently unemployed and looking for a job?: No Are you interested in more education?: No Please select the resources that you would like help with: None Currently or been in a relationship where the following occur: No concerns reported THRIVE Score: 0 AUDIT C Alcohol Use Questionnaire (AUDIT-C) 1. How often do you have a drink containing alcohol?: Never Total Score: 0 HEIDY-7 AMB Questionnaire HEIDY-7 Date HEIDY - 7 assessed: 12/28/23 Feeling nervous, anxious, or on edge: 0 = Not at all Not being able to stop or control worryin = Not at all Worrying too much about different things: 0 = Not at all Trouble relaxin = Not at all Being so restless that it is hard to sit still: 0 = Not at all Becoming easily annoyed or irritable: 0 = Not at all Feeling afraid as if something awful might happen: 0 = Not at all Total HEIDY-7 score (0-4 normal; 5-9 mild; 10-14 moderate; 15-21 severe): 0 Source: Developed by Drs. Roque Kaur, Diana Ordaz, Kevin Velásquez and colleagues, with an educational rosendo from [employer]. HEIDY-7 Assessment Billing HEIDY-7 Assessment Tool: HEIDY-7 Assessment 57086 Review of Systems Const Details: Const Denies chills, Denies fatigue, Denies fever(s), Denies headache(s) and Denies weakness ENT Denies dizziness and Denies headache(s) Card Denies chest pain, Denies lightheadedness, Denies dyspnea and Denies other (Palpitations) Resp Denies cough, Denies dyspnea, Denies wheezing and Denies other ( shortness of breath) GI Denies abdominal pain, Denies melena, Denies hematochezia, Denies change in bowel habits, Denies dyspepsia and Denies nausea Denies hematuria and Denies dysuria Musc Denies abnormal gait, Denies myalgias, Denies arthralgias, Denies numbness and Denies tingling Skin/Breast Denies rash, Denies unusual bruising and Denies wounds Neuro Denies abnormal gait, Denies dizziness, Denies headache(s), Denies memory loss, Denies numbness, Denies Sensory deficit (Neuro), Denies tingling and Denies weakness Psych Denies anxiety, Denies depression, Denies memory loss Endo Denies cold intolerance, Denies fatigue, Denies heat intolerance, Denies polydipsia and Denies polyuria Aller/Immun Denies wheezing Physical exam (Primary Care) Vital Signs: Last Vital Signs Temp 97.5 F 12/28/23 14:10 Pulse 71 12/28/23 14:10 Resp 16 12/28/23 14:10 BP 130/61 12/28/23 14:10 Pulse Ox 97 12/28/23 14:10 Oxygen Delivery Method Room Air 12/28/23 14:10 BMI result Body Mass Index 29.7 Tobacco/Smoking Status: Tobacco use Status Tobacco use date assessed 12/28/23 12/28/23 14:20 Patient Tobacco Use Status Former Tobacco user 12/28/23 14:01 e-Cigarette/Vaping Use Never Used 12/28/23 14:01 PHQ-9: PHQ-9 Score PHQ-9: Total score 0 12/28/23 14:20 Depression Screening Interpretation: Negative Thrive Assessment: Date of Thrive Assessment Date Thrive assessed 12/28/23 12/28/23 14:20 Currently or been in a relationship where the following occur: No concerns reported Const Other: General: no acute distress and well developed Nutritional Appearance: well nourished Orientation/consciousness: patient oriented x3 HENMT Head: Yes normocephalic and Yes atraumatic Eyes General: appearance normal, both eyes and all related structures Pupils: Equal, round and reactive pupils present EOM: EOMs intact bilaterally Resp Effort & Inspection: normal respiratory effort Auscultation: clear to auscultation bilaterally Cardio Rate: regular rate Rhythm: regular rhythm Heart sounds: S1 normal heart sound present, S2 normal heart sound present, no gallops, no murmurs and no rubs GI Palpation (GI): No Abdominal aortic bruit present, Soft to palpation, nontender, No hepatosplenomegaly present and No Rebound tenderness present Auscultation: normal bowel sounds General: Yes no CVA tenderness Back/Spine/Pelvis Back: no CVA tenderness Extrem General: Yes normal to inspection, No edema and No calf tenderness Skin General: warm and dry. Normal skin color. Normal skin turgor Neuro General: patient oriented x3, gait normal and no focal neuro deficit Cranial nerves: Yes Equal, round and reactive pupils present Cognition (Neuro): normal cognition Gait exam (Neuro): Normal gait present Sensory Exam: No Sensory deficit (Neuro) Psych Appearance: grossly normal Affect: normal affect Attitude: cooperative Thought process: Normal thought process present Results AMB Hemoglobin A1c AMB Hemoglobin A1c 8.4 % Last Edit by Leanna Riojas on 12/28/23 14:44 Coding Level of Care Code Est Pt Level 4 (15845) Diagnoses Primary hypertension I10 Hypertension type: primary hypertension Diabetes E11.9 Diabetes mellitus type: type 2 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 Continue current treatment. Low sodium diet encouraged. 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 Will restart Jardiance 25 mg daily to for blood glucose management and cardiovascular health. (3) Hyperlipidemia: Code(s): E78.5 - Hyperlipidemia, unspecified Category: Medical Plan: Continue ezetimibe. She will request for her lipid panel lab result to be sent to her PCP for review. (4) Hypothyroidism: Code(s): E03.9 - Hypothyroidism, unspecified Category: Medical Plan: Continue to take levothyroxine as prescribed. Will recheck T3 level. Orders: Orders AMB Hemoglobin A1c Today Z13.9 - Encounter for screening, unspecified Triiodothyronine T3 Free Today E03.9 - Hypothyroidism, unspecified Medications: Refilled empagliflozin (Jardiance) 25 mg PO DAILY 90 tabs 0RF Patient Instructions: I discussed with the patient the current status of her medical conditions, particularly the worsening glycemic control and the rationale for resuming Jardiance to help address both glycemic levels and cardiovascular protection. I explained the benefits and potential risks associated with Trulicity and Jardiance, including the increased efficacy in combination and the reduction of cardiovascular events. We addressed her concerns regarding Trulicity's potential link to thyroid cancer, reassuring her about the low risk in the absence of personal or family history of endocrine tumors. 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 Follow-up arrangements with her primary care provider in three months were recommended to reassess her therapeutic regimen. - Resume Jardiance 25 mg daily. - Monitor blood glucose levels regularly at home. - Follow up with dietary modifications focusing on carbohydrate intake. - Repeat thyroid function tests as recommended. - Schedule a follow-up appointment in three months. - Call [facility] to ensure the transfer of cholesterol test results. - Maintain regular communication with cardiac and primary care providers. Patient was informed and verbally consented to the use of an ambient scribe for clinic note documentation during this visit.
[2023-12-28 14:10] VITALS: BP 130/61; PULSE 71; RESP 16; TEMP 36.4; O2SAT 97; BMI 29.7
[2023-12-28 14:37] VITALS: BP 110/74
== END 2023-12-28 14:54 | disposition home or self-care (01) ==
LOC: HO.HMCFM 13:52
PROVIDERS: PCP Family Medicine; Visit Provider Nurse Practitioner Family
DX: I10 Essential (primary) hypertension (principal); E11.9 Type 2 diabetes mellitus without complications; E78.5 Hyperlipidemia, unspecified; E03.9 Hypothyroidism, unspecified; Z13.9 Encounter for screening, unspecified

== ENCOUNTER → 2023-12-28 13:52 | Outpatient (BNVA) | payer OTHER, SELFPAY | PROVIDERS: PCP Family Medicine; Visit Provider Nurse Practitioner Family | DX: Z23 Encounter for immunization (principal); I10 Essential (primary) hypertension; E11.9 Type 2 diabetes mellitus without complications; E78.5 Hyperlipidemia, unspecified; E03.9 Hypothyroidism, unspecified | CPT/HCPCS: 83036; 96127; 99212 ==

== ENCOUNTER 2023-12-28 15:02 | Outpatient (REF) | payer OTHER, SELFPAY ==
[2023-12-30 02:13] LABS: Triiodothyronine T3 Free 2.8 pg/mL (2.3-4.2)
== END 2023-12-28 15:03 | disposition home or self-care (01) ==
LOC: HO.WFDLDS 15:02
PROVIDERS: Visit Provider Nurse Practitioner Family
DX: E03.9 Hypothyroidism, unspecified (principal)
CPT/HCPCS: 36415; 84481

== ENCOUNTER 2024-03-30 10:28 | Outpatient (AMB) | payer OTHER, SELFPAY ==
--- NOTE | 2024-03-30 10:42 | MHC.PC.OV ---
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: No Allergies epinephrine Allergy (Severe, Verified 03/30/24 10:52) Anxiety general anestesia Allergy (Severe, Uncoded 12/28/23 14:23) hypothermia statin Allergy (Severe, Uncoded 12/28/23 14:23) Joint Pain lisinopril Allergy (Mild, Uncoded 12/28/23 14:23) Angioedema Medication List - Last Reconciled 03/30/24 by Perry Huff MD albuterol sulfate 90 mcg/actuation 2 puffs inhalation Q6H PRN aspirin 81 mg PO DAILY blood sugar diagnostic (FreeStyle Lite Strips) As directed, check glucose twice per day blood-glucose meter As directed calcium carbonate-vitamin D3 500 mg-10 mcg (400 unit) (Oyster Shell Calcium-Vitamin D3) 1 tab PO DAILY cholecalciferol (vitamin D3) 1,250 mcg PO .every other week clotrimazole-betamethasone 1-0.05 % 1 appl topical BID dulaglutide (Trulicity) 0.75 mg (0.5 mL) subcut QWEEK 28 days estradiol 1 mg PO DAILY ezetimibe 10 mg PO DAILY flash glucose scanning reader (O&P ProStyle Tereza 2 [place]) As directed flash glucose sensor (FreeStyle Tereza 2 Sensor kit) As directed glipizide ER 10 mg PO QAM 90 days lancets (FreeStyle Lancets) As directed, check glucose twice per day levothyroxine 100 mcg PO DAILY 90 days metoprolol succinate ER 25 mg PO DAILY vitamin K2 100 mcg PO DAILY Tobacco use date assessed: 12/28/23 Dental Screening Dental Screen Date: 12/28/23 HPI HTN, DM HPI Details Patient?presents?to?follow-up?hypertension?and?diabetes.??Also?following?up?on?hypothyroidism?and?planned?to?discuss?lipids. Blood?pressure?is?controlled.??Goal?is?less?than?130/80. A1c?today?has?climbed?to?11.3%. She?was?switched?off?of?Jardiance.??She?continue?Trulicity?at?the?same?dose?and?was?given?some?glipizide. Patient?notes?that?Jardiance?is?expensive?for.??She?would?like?to?increase?Trulicity She?also?says?that?she?has?not?been?working?on?a?good?a?diabetic?diet?but?plans?to resume?this. Reviewed?thyroid?hormones?with?patient TSH?and?T4?are?okay?but?T3?is?a?little?low.??She?is?taking?her?levothyroxine?as?prescribed Patient?did?not?have?lipids?drawn?at?last?Check. [facility] Medical History History of pilonidal cyst Surgical History History of heart artery stent H/O tubal ligation H/O: hysterectomy Family History Mother Alcohol abuse Father Alcohol abuse Brother Alcohol abuse Sister No problems noted. 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 Current occupation: [employer] Current occupational exposures/hazards: Yes Sexual orientation: Unable to collect Gender identity: Unable to collect Cognitive needs: No Hearing needs: Yes Vision needs: Yes (glasses) Questionnaire Thrive Questionnaire Date Thrive assessed: 03/27/24 I am a: Patient What is your living situation today?: I have a steady place to live Within the past 12 months, did the food you bought not last and you didn't have the money to get more?: Never true Within the past 12 months, did you worry whether your food would run out before you got money to buy more?: Never true Do you have trouble paying for medicines?: No Do you have trouble getting transportation to medical appointments?: No Do you have trouble paying your heating and electricity bill?: No Do you have trouble taking care of your child, family member or friend?: No Do you have trouble with day-to-day activities such as bathing, preparing meals, shopping, managing finances, etc.?: No Are you currently unemployed and looking for a job?: No Are you interested in more education?: No THRIVE Score: 0 AUDIT C Alcohol Use Questionnaire (AUDIT-C) 1. How often do you have a drink containing alcohol?: Never 3. How often do you have six or more drinks on one occasion?: Never Total Score: 0 HEIDY-7 AMB Questionnaire HEIDY-7 Date HEIDY - 7 assessed: 12/28/23 Feeling nervous, anxious, or on edge: 0 = Not at all Not being able to stop or control worryin = Not at all Worrying too much about different things: 0 = Not at all Trouble relaxin = Not at all Being so restless that it is hard to sit still: 0 = Not at all Becoming easily annoyed or irritable: 0 = Not at all Feeling afraid as if something awful might happen: 0 = Not at all Total HEIDY-7 score (0-4 normal; 5-9 mild; 10-14 moderate; 15-21 severe): 0 Source: Developed by Drs. Roque Kaur, Diana Ordaz, Kevin Velásquez and colleagues, with an educational rosendo from [employer]. Review of Systems Const Denies chills, Denies fatigue, Denies fever(s), Denies headache(s) and Denies weakness ENT Denies dizziness and Denies headache(s) Card Denies chest pain, Denies lightheadedness, Denies dyspnea and Denies other (Palpitations) Resp Denies cough, Denies dyspnea, Denies wheezing and Denies other ( shortness of breath) Musc Denies numbness and Denies tingling Neuro Denies dizziness, Denies headache(s), Denies numbness, Denies tingling, Denies paresthesias and Denies weakness Psych Denies anxiety and Denies depression Endo Denies fatigue Aller/Immun Denies wheezing Physical exam (Primary Care) Vital Signs: Last Vital Signs Temp 97.6 F 03/30/24 10:57 Pulse 71 03/30/24 10:57 Resp 12 03/30/24 10:57 BP 120/60 03/30/24 10:57 Pulse Ox 97 03/30/24 10:57 Oxygen Delivery Method Room Air 03/30/24 10:57 BMI result Body Mass Index 31.0 Tobacco/Smoking Status: Tobacco use Status Tobacco use date assessed 12/28/23 03/30/24 10:54 Patient Tobacco Use Status Former Tobacco user 03/30/24 10:54 e-Cigarette/Vaping Use Never Used 03/30/24 10:54 Thrive Assessment: Date of Thrive Assessment Date Thrive assessed 03/27/24 03/30/24 10:54 Const General: no acute distress and well developed Nutritional Appearance: well nourished Orientation/consciousness: patient oriented x3 HENMT Head: Yes normocephalic and Yes atraumatic Eyes General: appearance normal, both eyes and all related structures Pupils: Equal, round and reactive pupils present EOM: EOMs intact bilaterally Resp Effort & Inspection: normal respiratory effort Auscultation: clear to auscultation bilaterally Cardio Rate: regular rate Rhythm: regular rhythm Heart sounds: S1 normal heart sound present, S2 normal heart sound present, no gallops, no murmurs and no rubs Neuro General: patient oriented x3 and gait normal Cranial nerves: Yes Equal, round and reactive pupils present Psych Affect: normal affect Results AMB Hemoglobin A1c AMB Hemoglobin A1c 11.3 % Last Edit by Jim Sotomayor CMA on 03/30/24 11:11 Results Reviewed Results Reviewed: Laboratory Last Values Hgb A1c (Clinic) 11.3 % (4.0-6.0) H 03/30/24 11:10 Coding Level of Care Code Est Pt Level 4 (47708) Diagnoses Primary hypertension I10 Hypertension type: primary hypertension Coronary artery disease I25.10 Hyperlipidemia E78.5 Uncontrolled type 2 diabetes mellitus with hyperglycemia E11.65 Diabetes mellitus type: type 2 Hypothyroidism E03.9 Assessment & Plan Assessment & Plan (1) Hypertension: Code(s): I10 - Essential (primary) hypertension Category: Medical Qualifiers: Hypertension type: primary hypertension Qualified Code(s): I10 - Essential (primary) hypertension Plan: Blood?pressure?is?controlled.??Goal?is?less?than?130/80 Continue?current?medication (2) Coronary artery disease: Code(s): I25.10 - Atherosclerotic heart disease of [place] coronary artery without angina pectoris Category: Medical Plan: Followed?by?cardiology.??Stable Follow-up?with?Cardiology?as?recommended (3) Hyperlipidemia: Code(s): E78.5 - Hyperlipidemia, unspecified Category: Medical Plan: Will?check?lipids?with?next?blood?draw Continue?Zetia (4) Uncontrolled diabetes mellitus with hyperglycemia: Comment: I have sent in a new order for freestyle CGM as I do feel like she would benefit from this given her hypoglycemia unawareness as well as swings in her blood sugars that she is feeling overnight. I was unable to find a glucometer that is covered by insurance. I have left a message with the nurse navigation team to help her set up and use the CGM as well as look for a glucometer that may be covered by her insurance. In the meantime she can continue to use her home monitor and continue to record her blood sugars. In regards to medication management she is doing quite well on the Trulicity so she should continue that the current dose. Her blood sugars are well controlled using the Jardiance 10 mg. Therefore I have discontinued the 25 mg of Jardiance and sent in a new prescription for Jardiance 10 mg. Code(s): E11.65 - Type 2 diabetes mellitus with hyperglycemia Category: Medical Qualifiers: Diabetes mellitus type: type 2 Qualified Code(s): E11.65 - Type 2 diabetes mellitus with hyperglycemia Plan: A1c?11.3%.??Uncontrolled?diabetes.??Goal?is?less?than?7.0% Increasing?Trulicity Continue?glipizide Patient?was?having?difficulty?paying?for?Jardiance. Resume?diabetic?diet?and?exercise Close?follow-up?in?2?months (5) Hypothyroidism: Code(s): E03.9 - Hypothyroidism, unspecified Category: Medical Plan: T3?is?low. No?change?to?her?thyroid?hormone?today. Will?recheck?prior?to?her?next?visit?in?about?2?months?and?if?still?off,?we?may?adjust?her?medication Orders: Orders Thyroid Stimulating Hormone Today E03.9 - Hypothyroidism, unspecified Lipid Panel Today I25.10 - Atherosclerotic heart disease of [place] coronary artery without angina pectoris, Z00.00 - Encounter for general adult medical examination without abnormal findings Comprehensive [place]. Panel Fast Today I25.10 - Atherosclerotic heart disease of [place] coronary artery without angina pectoris, Z00.00 - Encounter for general adult medical examination without abnormal findings AMB Hemoglobin A1c Today E11.65 - Type 2 diabetes mellitus with hyperglycemia Free T4 (Free Thyroxine) Today E03.9 - Hypothyroidism, unspecified Triiodothyronine T3 Total Today E03.9 - Hypothyroidism, unspecified Medications: Changed From dulaglutide (Trulicity) 0.75 mg (0.5 mL) subcut QWEEK 28 days 2 mL 2RF E11.65 - Type 2 diabetes mellitus with hyperglycemia To dulaglutide 1.5 mg (0.5 mL) subcut QWEEK 28 days 2 mL 2RF E11.65 - Type 2 diabetes mellitus with hyperglycemia Refilled glipizide ER 10 mg PO QAM 90 days 90 tabs 3RF
[2024-03-30 10:57] VITALS: BP 120/60; PULSE 71; RESP 12; TEMP 36.4; O2SAT 97; BMI 31.0
== END 2024-03-30 11:37 | disposition home or self-care (01) ==
PROVIDERS: PCP Family Medicine; Visit Provider Family Medicine
DX: I10 Essential (primary) hypertension (principal); I25.10 Atherosclerotic heart disease of native coronary artery without angina pectoris; E78.5 Hyperlipidemia, unspecified; E11.65 Type 2 diabetes mellitus with hyperglycemia; E03.9 Hypothyroidism, unspecified

== ENCOUNTER → 2024-03-30 10:28 | Outpatient (BNVA) | payer OTHER, SELFPAY | PROVIDERS: PCP Family Medicine; Visit Provider Family Medicine | DX: I10 Essential (primary) hypertension (principal); I25.10 Atherosclerotic heart disease of native coronary artery without angina pectoris; E78.5 Hyperlipidemia, unspecified; E11.65 Type 2 diabetes mellitus with hyperglycemia; E03.9 Hypothyroidism, unspecified | CPT/HCPCS: 83036; 99212 ==

== ENCOUNTER 2024-06-01 08:26 | Outpatient (AMB) | payer OTHER, SELFPAY ==
--- OUTSIDE RECORDS SUMMARY | 2024-06-01 08:31 | XMS_ITS | Clinical Summary ---
Author Organization [facility] Address [address] [place] [address] Phone Care Team Providers Care Bucket Chucker Name Role Phone Perry Huff MD Primary Care Provider Encounters Date Type Department Care Team Description 05/30/2024 7:14 AM EDT - 05/30/2024 11:59 PM EDT Hospital Encounter [facility] Bone Density [address] [place] [address] Encounter for screening for osteoporosis; Osteoporosis Discharge Disposition: Home or Self Care from Last 3 Months Social History Tobacco Use Types Packs/Day Years Used Date Smoking Tobacco: Never Assessed Comments Unknown Sex and Gender Information Value Date Recorded Sex Assigned at Female 05/02/2024 10:01 AM EDT Legal Sex Female 10:36 AM EDT Gender Identity Female 05/02/2024 10:01 AM EDT Sexual Orientation Straight 05/02/2024 10 :01 AM EDT Plan of Treatment Health Maintenance Due Date Last Done Comments Breast Cancer Screening 1960 Cervical Cancer Screening: Pap Smear 1981 Zoster Vaccines (1 of 2) 2010 Pneumococcal Vaccine: 50+ Years (2 of 2 - PCV) 02/15/2018 02/15/2017 COVID-19 Vaccine ( season) 2023 05/23/2020, 04/25/2020 Colorectal Cancer Screening: Colonoscopy 05/02/2024 Depression Screening 05/02/2024 HIV Screening 05/02/2024 Hepatitis C Screening 05/02/2024 Social Influencers of Health Screening 05/02/2024 DTaP,Tdap,and Td Vaccines (2 - Td or Tdap) 11/15/2032 11/15/2022 Osteoporosis Screening (Bone Density Screening) 05/30/2034 05/30/2024 RSV Immunization Adult Patients (1 - 1-dose 75+ series) 11/24/2035 Pneumococcal Vaccine: Pediatrics (0 to 5 Years) and At-Risk Patients (6 to 64 Years) Aged Out 02/15/2017 No longer eligible based on patient's age to complete this topic Influenza Vaccine Completed 12/01/2023, , 12/11/2021, Additional history exists HIB Vaccines Aged Out No longer eligi ble based on patient's age to complete this topic HPV Vaccines Aged Out No longer eligi ble based on patient's age to complete this topic Hepatitis A Vaccines Aged Out No long er eligible based on patient's age to complete this topic Hepatitis B Vaccines Aged Out No long er eligible based on patient's age to complete this topic IPV Vaccines Aged Out No longer eligi ble based on patient's age to complete this topic MMR Vaccines Aged Out No longer eligi ble based on patient's age to complete this topic Meningococcal ACWY Vaccine Aged Out N o longer eligible based on patient's age to complete this topic Meningococcal B Vaccine Aged Out No l onger eligible based on patient's age to complete this topic RSV Immunization Patients Under 20 months Aged Out No longer eligible based on patient's age to complete this topic Varicella Vaccines Aged Out No longer eligible based on patient's age to complete this topic Procedures Procedure Name Priority Date/Time Associated Diagnosis Comments BD BONE DENSITY DXA AXIAL SKELETON Routine 05/30/2024 7:42 AM EDT Encounter for screening for osteoporosis Osteoporosis from Last 3 Months Results * BD Bone Density DXA Axial Skeleton (05/30/2024 7:42 AM EDT) Anatomical Region Laterality Modality Wrist, Hip, L-spine Bone Densito metry 05/30/2024 8:24 AM EDT Impressions 05/30/2024 8:25 AM EDT 1. Osteoporosis. 2. FRAX analysis yields a 10-year probability of major osteoporotic fracture of 8.9% and a 10-year probability of hip fracture of 1.0%. Code 26993 -------- FINAL REPORT -------- Dictated By: Farooq Wong Dictated Date: 05/30/2024 08:24 ET Assigned Physician: Farooq Wong Reviewed and Electronically Signed By: Farooq Wong Signed Date: 05/30/2024 08:25 ET Workstation ID: [id number] Transcribed By: Self Edit Transcribed Date: 05/30/2024 08:24 ET Narrative 05/30/2024 8:25 AM EDT HISTORY: ??The patient is a 63-year-old postmenopausal female with clinical concern for metabolic bone disease. FINDINGS: ??Dual energy x-ray absorptiometry of the lumbar spine and femurs is performed. The mean bone mineral density at L1-3 (with the exclusion of L2) is 1.009 gm/cm2 which is 87% of that of young normals and 101% of that of age matched controls. This yields a T-score of -1.3 and a Z-score of 0.1 which is diagnostic of osteopenia. The mean bone mineral density of the femurs bilaterally is 0.826 gm/cm2 which is 82% of that of young normals and 95% of that of age matched controls. ??This yields a T-score of -1.4 and a Z-score of -0.4 which is diagnostic of osteopenia. However, the T-score of the left femoral neck is -2.5 which is diagnostic of osteoporosis. Procedure Note Farooq Wong MD - 05/30/2024 HISTORY: The patient is a 63-year-old postmenopausal female with clinicalconcern for metabolic bone disease. FINDINGS: Dual energy x-ray absorptiometry of the lumbar spine and femursis performed. The mean bone mineral density at L1-3 (with the exclusion ofL2) is 1.009 gm/cm2 which is 87% of that of young normals and 101% of thatof age matched controls. This yields a T-score of -1.3 and a Z-score of0.1 which is diagnostic of osteopenia. The mean bone mineral density of the femurs bilaterally is 0.826 gm/cq1nmhqt is 82% of that of young normals and 95% of that of age matchedcontrols. This yields a T-score of -1.4 and a Z-score of -0.4 which isdiagnostic of osteopenia. However, the T-score of the left femoral neck is-2.5 which is diagnostic of osteoporosis. IMPRESSION: 1. Osteoporosis. 2. FRAX analysis yields a 10-year probability of major osteoporoticfracture of 8.9% and a 10-year probability of hip fracture of 1.0%. Code 52358 -------- FINAL REPORT -------- Dictated By: Farooq Wong Dictated Date: 05/30/2024 08:24 ET Assigned Physician: Farooq Wong Reviewed and Electronically Signed By: Farooq Wong Signed Date: 05/30/2024 08:25 ET Workstation ID: [id number] Transcribed By: Self Edit Transcribed Date: 05/30/2024 08:24 ET Roque Duncan MD IM DXA PROCEDURES Final Result from Last 3 Months Insurance [employer] Care Teams Bucket Chucker Relationship Specialty Start Date End Date Perry Huff MD [address] [place] [address] Dr Darby [place] PCP - General Family Medicine 05/02/24
--- OUTSIDE RECORDS SUMMARY | 2024-06-01 08:31 | XMS_ITS | Encounter Summary ---
Author Organization [facility] Address [address] [place] [address] Care Team Providers Care Superintendent Seed Mill Name Role Phone Perry Huff MD Primary Care Provider [phone] Reason for Referral * Imaging (Routine) - Authorized Specialty Diagnoses / Procedures Referred By Contac t Referred To Contact Radiology Diagnoses Encounter for screening for osteoporosis Osteoporosis Procedures BD Bone Density DXA Axial Skeleton Roque Duncan MD [address] [place] [address] Phone: tel: fax: [facility] Referral ID Status Reason Start Date Expiration Date V isits Requested Visits Authorized [id number] Authorized 05/01/2024 05/01/2025 1 1 Reason for Visit * Imaging (Routine) - Authorized Specialty Diagnoses / Procedures Referred By Contac t Referred To Contact Radiology Diagnoses Encounter for screening for osteoporosis Osteoporosis Procedures BD Bone Density DXA Axial Skeleton Roque Duncan MD [address] [place] [address] Phone: tel: fax: [facility] Referral ID Status Reason Start Date Expiration Date V isits Requested Visits Authorized [id number] Authorized 05/01/2024 05/01/2025 1 1 Encounter Details Date Type Department Care Team (Latest Contact Info) Description 05/30/2024 7:14 AM EDT - 05/30/2024 11:59 PM EDT Hospital Encounter [facility] Bone Density [address] [place] [id number] Encounter for screening for osteoporosis; Osteoporosis Discharge Disposition: Home or Self Care Social History Tobacco Use Types Packs/Day Years Used Date Smoking Tobacco: Never Assessed Comments Unknown Sex and Gender Information Value Date Recorded Sex Assigned at Female 05/02/2024 10:01 AM EDT Legal Sex Female 10:36 AM EDT Gender Identity Female 05/02/2024 10:01 AM EDT Sexual Orientation Straight 05/02/2024 10 :01 AM EDT documented as of this encounter Discharge Disposition Disposition Code Departure Means Destination Home or Self Care documented in this encounter Plan of Treatment Not on file documented as of this encounter Procedures Procedure Name Priority Date/Time Associated Diagnosis Comments BD BONE DENSITY DXA AXIAL SKELETON Routine 05/30/2024 7:42 AM EDT Encounter for screening for osteoporosis Osteoporosis documented in this encounter Results * BD Bone Density DXA Axial Skeleton (05/30/2024 7:42 AM EDT) Anatomical Region Laterality Modality Wrist, Hip, L-spine Bone Densito metry 05/30/2024 8:24 AM EDT Impressions 05/30/2024 8:25 AM EDT 1. Osteoporosis. 2. FRAX analysis yields a 10-year probability of major osteoporotic fracture of 8.9% and a 10-year probability of hip fracture of 1.0%. Code 37727 -------- FINAL REPORT -------- Dictated By: Farooq Wong Dictated Date: 05/30/2024 08:24 ET Assigned Physician: Farooq Wong Reviewed and Electronically Signed By: Farooq Wong Signed Date: 05/30/2024 08:25 ET Workstation ID: [id number] Transcribed By: Self Edit Transcribed Date: 05/30/2024 [...] density of the femurs bilaterally is 0.826 gm/za2yzrkd is 82% of that of young normals [...] probability of hip fracture of 1.0%. Code 57670 -------- FINAL REPORT -------- Dictated By: Farooq Wong Dictated Date: 05/30/2024 08:24 ET Assigned Physician: Farooq Wong Reviewed and Electronically Signed By: Farooq Wong Signed Date: 05/30/2024 08:25 ET Workstation ID: [id number] Transcribed By: Self Edit Transcribed Date: 05/30/2024 08:24 ET us Roque Duncan MD IMG DXA PROCEDURES Final Result documented in this encounter Visit Diagnoses Diagnosis Encounter for screening for osteoporosis Osteoporosis Unspecified osteoporosis documented in this encounter Care Teams Superintendent [employer] Relationship Specialty Start Date End Date Perry Huff MD [address] [place] [address] Dr [address] Perry PCP - General Family Medicine 05/02/24 documented as of this encounter
--- NOTE | 2024-06-01 08:44 | A.OFFPC_ITS ---
Vital Signs 06/01/24 08:46 Height 4 ft 10 in Weight 148 lb 2 oz BMI 31.0 BP 110/70 Blood Pressure Location Rt brachial Position Sitting Respiration 12 Pulse 57 Pulse Source Pulse Oximeter Temp 97.4 F Temp Source Oral Pulse Oximetry (%) 96 Oxygen Delivery Method Room Air Intake Visit Reasons: DM and Chronic Cond. Intake Note: patient is scheduled for dm follow up Tourist Adviser Required: No Allergies epinephrine Allergy (Severe, Verified 06/01/24 08:45) Anxiety glipizide Adverse Reaction (Intermediate, Verified 06/01/24 08:45) Headache general anestesia Allergy (Severe, Uncoded 12/28/23 14:23) hypothermia statin Allergy (Severe, Uncoded 12/28/23 14:23) Joint Pain lisinopril Allergy (Mild, Uncoded 12/28/23 14:23) Angioedema Medication List - Last Reconciled 06/01/24 by Perry Huff MD albuterol sulfate 90 mcg/actuation 2 puffs inhalation Q6H PRN aspirin 81 mg PO DAILY blood sugar diagnostic (FreeStyle Lite Strips) As directed, check glucose twice per day blood-glucose meter As directed calcium carbonate-vitamin D3 500 mg-10 mcg (400 unit) (Oyster Shell Calcium- Vitamin D3) 1 tab PO DAILY cholecalciferol (vitamin D3) 1,250 mcg PO .every other week clotrimazole-betamethasone 1-0.05 % 1 appl topical BID empagliflozin (Jardiance) 10 mg PO QAM 90 days estradiol 1 mg PO DAILY ezetimibe 10 mg PO DAILY flash glucose scanning reader (FreeStyle Tereza 2 [place]) As directed flash glucose sensor (FreeStyle Tereza 2 Sensor kit) As directed insulin glargine (Lantus Solostar U-100 Insulin) 10 units (0.1 mL) subcut QPM 30 days lancets (FreeStyle Lancets) As directed, check glucose twice per day levothyroxine 100 mcg PO DAILY 90 days metoprolol succinate ER 25 mg PO DAILY pen needle, diabetic To treat high Blood Sugar, Daily As directed, 90 days vitamin K2 100 mcg PO DAILY Tobacco use date assessed: 12/28/23 Dental Screening Dental Screen Date: 12/28/23 HPI DM and Chronic Cond. HPI Details 63 y/o female presents to f/u diabetes, chronic conditions. A1c today 06/01/24 9.1%. Prior A1c in March 11.3%. Had increased her Trulicity, continued her glipizide. She is on Jardiance 10mg, Lantus 10 units. She notes she had just started her Lantus 10 units this morning. She had been having difficulty with Trulicity and glipizide. No recent labs to review for her thyroid. Bone density test 05/30/24 shows osteoporosis. [facility] Medical History History of pilonidal cyst Surgical History History of heart artery stent H/O tubal ligation H/O: hysterectomy Family History Mother Alcohol abuse Father Alcohol abuse Brother Alcohol abuse Sister No problems noted. Social History Household Members: None Both parents involved: No Caregiver staying overnight: No Housing: House Are you a primary medical care evaluation specialist to a significant other at home: No Do you presently have visiting nurse or other home services: No 75 years or older and lives alone: No Alcohol intake: never Patient Tobacco Use Status: Former Tobacco user Cigarette Packs Per Day: 1 Years Smoked: 30 e-Cigarette/Vaping Use: Never Used Second Hand Smoke Exposure: Yes service: Yes ([employer] [place]) Current occupational status: employed Current occupation: [employer] Current occupational exposures/hazards: Yes Sexual orientation: Unable to collect Gender identity: Unable to collect Cognitive needs: No Hearing needs: Yes Vision needs: Yes (glasses) Questionnaire PHQ-9 Over the last 2 weeks, how often have you been bothered by any of the following problems? 1. Little interest or pleasure in doing things: not at all 2. Feeling down, depressed, or hopeless: not at all 3. Trouble falling or staying asleep, or sleeping too much: not at all 4. Feeling tired or having little energy: not at all 5. Poor appetite or overeating: not at all 6. Feeling bad about yourself - or that you are a failure or have let yourself or your family down: not at all 7. Trouble concentrating on things, such as reading the newspaper or watching television: not at all 8. Moving or speaking so slowly that other people could have noticed. Or the opposite - being so fidgety or restless that you have been moving around a lot more than usual: not at all 9. Thoughts that you would be better off or of hurting yourself in some way: not at all Total score: 0 Source: Developed by Drs. Roque Kaur, Diana Ordaz, Kevin Velásquez and colleagues, with an educational rosendo from [employer]. Thrive Questionnaire Date Thrive assessed: 03/27/24 I am a: Patient What is your living situation today?: I have a steady place to live Within the past 12 months, did the food you bought not last and you didn't have the money to get more?: Never true Within the past 12 months, did you worry whether your food would run out before you got money to buy more?: Never true Do you have trouble paying for medicines?: No Do you have trouble getting transportation to medical appointments?: No Do you have trouble paying your heating and electricity bill?: No Do you have trouble taking care of your child, family member or friend?: No Do you have trouble with day-to-day activities such as bathing, preparing meals, shopping, managing finances, etc.?: No Are you currently unemployed and looking for a job?: No Are you interested in more education?: No Please select the resources that you would like help with: None Currently or been in a relationship where the following occur: No concerns reported THRIVE Score: 0 HEIDY-7 AMB Questionnaire HEIDY-7 Date HEIDY - 7 assessed: 12/28/23 Source: Developed by Drs. Roque Kaur, Diana Ordaz, Kevin Velásquez and colleagues, with an educational rosendo from [employer]. Review of Systems Const Denies chills, Denies fatigue, Denies fever(s), Denies headache(s) and Denies weakness ENT Denies dizziness and Denies headache(s) Card Denies chest pain, Denies lightheadedness, Denies dyspnea and Denies other (Palpitations) Resp Denies cough, Denies dyspnea, Denies wheezing and Denies other ( shortness of breath) Musc Denies numbness and Denies tingling Neuro Denies dizziness, Denies headache(s), Denies numbness, Denies tingling, Denies paresthesias and Denies weakness Psych Denies anxiety and Denies depression Endo Denies fatigue Aller/Immun Denies wheezing Physical exam (Primary Care) Vital Signs: Last Vital Signs Temp 97.4 F 06/01/24 08:46 Pulse 57 06/01/24 08:46 Resp 12 06/01/24 08:46 BP 110/70 06/01/24 08:46 Pulse Ox 96 06/01/24 08:46 Oxygen Delivery Method Room Air 06/01/24 08:46 BMI result Body Mass Index 31.0 Tobacco/Smoking Status: Tobacco use Status Tobacco use date assessed 12/28/23 06/01/24 08:50 Patient Tobacco Use Status Former Tobacco user 06/01/24 08:50 e-Cigarette/Vaping Use Never Used 06/01/24 08:50 PHQ-9: PHQ-9 Score PHQ-9: Total score 0 06/01/24 08:50 Thrive Assessment: Date of Thrive Assessment Date Thrive assessed 03/27/24 06/01/24 08:50 Currently or been in a relationship where the following occur: No concerns reported Const General: no acute distress and well developed Nutritional Appearance: well nourished Orientation/consciousness: patient oriented x3 HENMT Head: Yes normocephalic and Yes atraumatic Eyes General: appearance normal, both eyes and all related structures Pupils: Equal, round and reactive pupils present EOM: EOMs intact bilaterally Resp Effort & Inspection: normal respiratory effort Auscultation: clear to auscultation bilaterally Cardio Rate: regular rate Rhythm: regular rhythm Heart sounds: S1 normal heart sound present, S2 normal heart sound present, no gallops, no murmurs and no rubs Neuro General: patient oriented x3 and gait normal Cranial nerves: Yes Equal, round and reactive pupils present Psych Affect: normal affect Coding Level of Care Code Est Pt Level 4 (09720) Diagnoses Uncontrolled type 2 diabetes mellitus with hyperglycemia E11.65 Diabetes mellitus type: type 2 Hypothyroidism E03.9 Coronary artery disease I25.10 Primary hypertension I10 Hypertension type: primary hypertension Osteoporosis M81.0 Assessment & Plan Assessment & Plan (1) Uncontrolled diabetes mellitus with hyperglycemia: Code(s): E11.65 - Type 2 diabetes mellitus with hyperglycemia Category: Medical Qualifiers: Diabetes mellitus type: type 2 Qualified Code(s): E11.65 - Type 2 diabetes mellitus with hyperglycemia Plan: A1c?9.1%.??Still?uncontrolled.??Goal?is?less?than?7.0% She?is?now?on?Lantus?8?units?daily?and?has?not?started?the?Jardiance?yet Blood?sugars?rather?consistently?above?200 She?has?had?about?2?low?blood?sugars.??She?will make?sure?he?has?a?meal?with?some?complex?carbohydrates?in?evening. She?will?start?her?Jardiance?in?the?morning Recommend?using?and?is?in?evening (2) Hypothyroidism: Code(s): E03.9 - Hypothyroidism, unspecified Category: Medical Plan: Patient?had?lab?work?drawn?at?[facility].??I?do?not?hav e?the?results?yet?and?will?request?these (3) Coronary artery disease: Code(s): I25.10 - Atherosclerotic heart disease of [place] coronary artery without angina pectoris Category: Medical Plan: Patient?had?lipids?drawn?at?[facility].??Requesting?results (4) Hypertension: Code(s): I10 - Essential (primary) hypertension Category: Medical Qualifiers: Hypertension type: primary hypertension Qualified Code(s): I10 - Essential (primary) hypertension Plan: Blood?pressure?is?well?controlled.??Goal?is?less?than?130/80 Continue?medication (5) Osteoporosis: Code(s): M81.0 - Age-related osteoporosis without current pathological fracture Category: Medical Plan: Bone?density?test?shows?osteoporosis.??Patient?declines?medication?at?this?time
[2024-06-01 08:46] VITALS: BP 110/70; PULSE 57; RESP 12; TEMP 36.3; O2SAT 96; BMI 31.0
== END 2024-06-01 09:35 | disposition home or self-care (01) ==
LOC: HO.HMCFM 08:27
PROVIDERS: PCP Family Medicine; Visit Provider Family Medicine
DX: E11.65 Type 2 diabetes mellitus with hyperglycemia (principal); E03.9 Hypothyroidism, unspecified; I25.10 Atherosclerotic heart disease of native coronary artery without angina pectoris; I10 Essential (primary) hypertension; M81.0 Age-related osteoporosis without current pathological fracture

== ENCOUNTER → 2024-06-01 08:26 | Outpatient (BNVA) | payer OTHER, SELFPAY | PROVIDERS: PCP Family Medicine; Visit Provider Family Medicine | DX: E11.65 Type 2 diabetes mellitus with hyperglycemia (principal); E03.9 Hypothyroidism, unspecified; I25.10 Atherosclerotic heart disease of native coronary artery without angina pectoris; I10 Essential (primary) hypertension; M81.0 Age-related osteoporosis without current pathological fracture; Z79.4 Long term (current) use of insulin; Z79.84 Long term (current) use of oral hypoglycemic drugs | CPT/HCPCS: 83036; 99212 ==

== ENCOUNTER 2024-08-02 09:31 | Outpatient (AMB) | payer OTHER, SELFPAY ==
--- NOTE | 2024-08-02 09:43 | MHC.PC.OV ---
Vital Signs 08/02/24 09:53 Height 4 ft 10 in Weight 148 lb 4 oz BMI 31.0 BP 110/70 Blood Pressure Location Rt brachial Position Sitting Respiration 14 Pulse 59 Pulse Source Pulse Oximeter Temp 97.3 F Temp Source Oral Pulse Oximetry (%) 97 Oxygen Delivery Method Room Air Intake Visit Reasons: follow-up fairly/uncontrolled diabetes Intake Note: patient is scheduled to follow up on dm. patient also states she has had bilateral edema in both feet and fatigue. Treatment Manager Required: No Allergies epinephrine Allergy (Severe, Verified 08/02/24 09:51) Anxiety glipizide Adverse Reaction (Intermediate, Verified 08/02/24 09:51) Headache general anestesia Allergy (Severe, Uncoded 12/28/23 14:23) hypothermia statin Allergy (Severe, Uncoded 12/28/23 14:23) Joint Pain lisinopril Allergy (Mild, Uncoded 12/28/23 14:23) Angioedema Medication List - Last Reconciled 08/02/24 by Perry Huff MD albuterol sulfate 90 mcg/actuation 2 puffs inhalation Q6H PRN aspirin 81 mg PO DAILY blood sugar diagnostic (FreeStyle Lite Strips) As directed, check glucose twice per day blood-glucose meter As directed calcium carbonate-vitamin D3 500 mg-10 mcg (400 unit) (Oyster Shell Calcium-Vitamin D3) 1 tab PO DAILY cholecalciferol (vitamin D3) 1,250 mcg PO .every other week empagliflozin (Jardiance) 10 mg PO QAM 90 days estradiol 1 mg PO DAILY ezetimibe 10 mg PO DAILY flash glucose scanning reader (FreeStyle Tereza 2 [place]) As directed flash glucose sensor (FreeStyle Tereza 2 Sensor kit) As directed insulin glargine (Lantus Solostar U-100 Insulin) 10 units (0.1 mL) subcut QPM 30 days lancets (FreeStyle Lancets) As directed, check glucose twice per day levothyroxine 100 mcg PO DAILY 90 days metoprolol succinate ER 25 mg PO DAILY pen needle, diabetic To treat high Blood Sugar, Daily As directed, 90 days vitamin K2 100 mcg PO DAILY Tobacco use date assessed: 12/28/23 Dental Screening Dental Screen Date: 12/28/23 HPI follow-up fairly/uncontrolled diabetes HPI Details 63 y/o female presents to f/u uncontrolled diabetes. Last A1c 06/01/24 9.1%. She had not started her Jardiance. A1c today improved to 7.6%. Had recorded mildly low blood sugars - around 65 but has been occurring less frequently. Blood pressure today 110/70, 59p. She is on metoprolol 25mg daily. HPI Comments History of Present Illness Details Documentation assistance for Prery Huff MD, was provided by Jose Manuel Givens,? Accounting Teacher on 08/02/2024 at 10:08 AM EST. I, Dr. Huff, have read, observed, and verified documentation. [facility] Medical History History of pilonidal cyst Surgical History History of heart artery stent H/O tubal ligation H/O: hysterectomy Family History Mother Alcohol abuse Father Alcohol abuse Brother Alcohol abuse Sister No problems noted. Social History Household Members: None Both parents involved: No Caregiver staying overnight: No Housing: House Are you a primary care management associate to a significant other at home: No Do you presently have visiting nurse or other home services: No 75 years or older and lives alone: No Alcohol intake: never Patient Tobacco Use Status: Former Tobacco user Cigarette Packs Per Day: 1 Years Smoked: 30 e-Cigarette/Vaping Use: Never Used Second Hand Smoke Exposure: Yes service: Yes ([employer]) Current occupational status: employed Current occupation: [employer] Current occupational exposures/hazards: Yes Sexual orientation: Unable to collect Gender identity: Unable to collect Cognitive needs: No Hearing needs: Yes Vision needs: Yes (glasses) Questionnaire Thrive Questionnaire Date Thrive assessed: 03/27/24 I am a: Patient What is your living situation today?: I have a steady place to live Within the past 12 months, did the food you bought not last and you didn't have the money to get more?: Never true Within the past 12 months, did you worry whether your food would run out before you got money to buy more?: Never true Do you have trouble paying for medicines?: No Do you have trouble getting transportation to medical appointments?: No Do you have trouble paying your heating and electricity bill?: No Do you have trouble taking care of your child, family member or friend?: No Do you have trouble with day-to-day activities such as bathing, preparing meals, shopping, managing finances, etc.?: No Are you currently unemployed and looking for a job?: No Are you interested in more education?: No Please select the resources that you would like help with: None Currently or been in a relationship where the following occur: No concerns reported THRIVE Score: 0 HEIDY-7 AMB Questionnaire HEIDY-7 Date HEIDY - 7 assessed: 12/28/23 Source: Developed by Drs. Roque Kaur, Diana Ordaz, Kevin Velásquez and colleagues, with an educational rosendo from [employer]. Review of Systems Const Denies chills, Denies fatigue, Denies fever(s), Denies headache(s) and Denies weakness ENT Denies dizziness and Denies headache(s) Card Denies dyspnea Resp Denies cough, Denies dyspnea, Denies wheezing and Denies other (shortness of breath) Musc Denies numbness and Denies tingling Neuro Denies dizziness, Denies headache(s), Denies numbness, Denies tingling and Denies weakness Psych Denies anxiety and Denies depression Endo Denies fatigue Aller/Immun Denies wheezing Physical exam (Primary Care) Vital Signs: Last Vital Signs Temp 97.3 F 08/02/24 09:53 Pulse 59 08/02/24 09:53 Resp 14 08/02/24 09:53 BP 110/70 08/02/24 09:53 Pulse Ox 97 08/02/24 09:53 Oxygen Delivery Method Room Air 08/02/24 09:53 BMI result Body Mass Index 31.0 Tobacco/Smoking Status: Tobacco use Status Tobacco use date assessed 12/28/23 08/02/24 09:44 Patient Tobacco Use Status Former Tobacco user 08/02/24 09:44 e-Cigarette/Vaping Use Never Used 08/02/24 09:44 Thrive Assessment: Date of Thrive Assessment Date Thrive assessed 03/27/24 08/02/24 09:44 Currently or been in a relationship where the following occur: No concerns reported Const General: well developed; No acute distress Nutritional Appearance: well nourished Orientation/consciousness: patient oriented x3 HENMT Head: Yes normocephalic and Yes atraumatic Eyes General: appearance normal, both eyes and all related structures Pupils: Equal, round and reactive pupils present EOM: EOMs intact bilaterally Resp Effort & Inspection: normal respiratory effort Neuro General: patient oriented x3 and gait normal Cranial nerves: Yes Equal, round and reactive pupils present Psych Affect: normal affect Coding Level of Care Code Est Pt Level 4 (23519) Diagnoses Diabetes E11.9 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 mill 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to?25?mg?daily Continue?working?on?snack?step?prevent?low?blood?sugars Will?follow-up?in?3?months (2) Hypertension: Code(s): I10 - Essential (primary) hypertension Category: Medical Qualifiers: Hypertension type: primary hypertension Qualified Code(s): I10 - Essential (primary) hypertension Plan: Controlled Goal < 140/90 Contt current regimen (3) Hypothyroidism: Code(s): E03.9 - Hypothyroidism, unspecified Category: Medical Plan: Patient?is?taking?levothyroxine?100?mcg?daily?as?prescribed Due?to?recheck?thyroid?hormone?levels?and?labs?are?ordered. She?will?get?these?drawn?today?and?I?will?call?her?of?action?is?required Orders: Orders Free T4 (Free Thyroxine) Today E03.9 - Hypothyroidism, unspecified Thyroid Stimulating Hormone Today E03.9 - Hypothyroidism, unspecified Comprehensive Met. Panel Today E03.9 - Hypothyroidism, unspecified Triiodothyronine T3 Total Today E03.9 - Hypothyroidism, unspecified
[2024-08-02 09:53] VITALS: BP 110/70; PULSE 59; RESP 14; TEMP 36.3; O2SAT 97; BMI 31.0
--- OUTSIDE RECORDS SUMMARY | 2024-08-02 10:33 | XMS_ITS | Clinical Summary ---
Author Organization [facility] Address [address] [place] [address] Phone Care Team Providers Care Timers Inspector Name Role Phone Perry Huff MD Primary Care Provider Encounters Date Type Department Care Team Description 05/30/2024 7:14 AM EDT - 05/30/2024 11:59 PM EDT Hospital Encounter [facility] Bone Density [address] [place] [address] Encounter for screening for osteoporosis; [...] probability of hip fracture of 1.0%. Code 79777 -------- FINAL REPORT -------- Dictated By: Farooq Wong Dictated Date: 05/30/2024 08:24 ET Assigned Physician: Farooq Wong Reviewed and Electronically Signed By: Farooq Wong Signed Date: 05/30/2024 08:25 ET Workstation ID: [id number] Transcribed By: Self Edit Transcribed Date: 05/30/2024 08:24 ET Narrative 05/30/2024 8:25 AM EDT HISTORY: The patient is a 63-year-old postmenopausal female with clinical concern for metabolic bone disease. FINDINGS: Dual energy [...] 95% of that of age matched controls. This yields a T-score of -1.4 and [...] density of the femurs bilaterally is 0.826 gm/dt3tkiid is 82% of that of young normals [...] probability of hip fracture of 1.0%. Code 18725 -------- FINAL REPORT -------- Dictated By: Farooq Wong Dictated Date: 05/30/2024 08:24 ET Assigned Physician: Farooq Wong Reviewed and Electronically Signed By: Farooq Wong Signed Date: 05/30/2024 08:25 ET Workstation ID: [id number] Transcribed By: Self Edit Transcribed Date: 05/30/2024 08:24 ET Roque Duncan MD IM DXA PROCEDURES Final Result from Last 3 Months Insurance [employer] Care Teams Timers Inspector Relationship Specialty Start Date End Date Perry Huff MD [address] [place] [address] Dr Darby [place] PCP - General Family Medicine 05/02/24
== END 2024-08-02 10:20 | disposition home or self-care (01) ==
LOC: HO.HMCFM 09:31
PROVIDERS: PCP Family Medicine; Visit Provider Family Medicine
DX: E11.9 Type 2 diabetes mellitus without complications (principal); I10 Essential (primary) hypertension; E03.9 Hypothyroidism, unspecified

== ENCOUNTER → 2024-08-02 09:31 | Outpatient (BNVA) | payer OTHER, SELFPAY | PROVIDERS: PCP Family Medicine; Visit Provider Family Medicine | DX: I10 Essential (primary) hypertension (principal); E11.9 Type 2 diabetes mellitus without complications; E03.9 Hypothyroidism, unspecified | CPT/HCPCS: 99212 ==

== ENCOUNTER 2024-08-02 10:56 | Outpatient (REF) | payer OTHER, SELFPAY ==
[2024-08-02 15:17] LABS: Alanine Aminotransferase 38 U/L (0-31); Albumin Level 4.4 g/dL (3.5-5.0); Alkaline Phosphatase 61 U/L (39-117); Anion Gap 13 (12-20); Aspartate Amino Transferase 37 U/L (5-31); Bilirubin Total 0.3 mg/dL (0.0-1.0); Blood Urea Nitrogen 16 mg/dL (9-16); Calcium 9.3 mg/dL (8.4-10.2); Carbon Dioxide 28 mmol/L (22-29); Chloride 105 mmol/L (96-108); Cholesterol 145 mg/dL (<200); Estimated Glomerular Filt Rate > 60; Glucose Fasting 118 mg/dL (60-99); Glucose Random 118 mg/dL (60-115); HDL Cholesterol 49 mg/dL (>40); LDL Cholesterol Calculated 82 mg/dL (<100); Potassium 4.3 mmol/L (3.3-5.1); Sodium 142 mmol/L (135-145); Total Protein 6.7 g/dL (6.5-8.0); Triglycerides 74 mg/dL (<150)
[2024-08-02 15:23] LABS: Free T4 (Free Thyroxine) 1.35 ng/dL (0.71-1.85); Thyroid Stimulating Hormone 0.34 uIU/mL (0.32-4.0)
[2024-08-03 07:14] LABS: Triiodothyronine T3 Total 68 ng/dL (76-181)
== END 2024-08-02 10:57 | disposition home or self-care (01) ==
LOC: HO.WFDLDS 10:56
PROVIDERS: Visit Provider Family Medicine
DX: E03.9 Hypothyroidism, unspecified (principal); Z00.00 Encounter for general adult medical examination without abnormal findings; I25.10 Atherosclerotic heart disease of native coronary artery without angina pectoris
CPT/HCPCS: 36415; 80053; 80061; 84439; 84443; 84480